=== PATIENT | male | born 1960 | race Caucasian/White ===

== ENCOUNTER → 2020-05-27 | Day surgery (SDC) | payer OTHER ==
[2020-05-21 10:13] LABS: Urine Bacteria FEW /hpf (None Seen); Urine Blood Negative /uL (Negative); Urine Mucus FEW (None Seen); Urine Specific Gravity 1.025 (1.001-1.035); Urine WBC 1 /hpf (0 - 3)
[2020-05-21 10:28] LABS: Basophils # (auto) 0.1 10 ^3/uL (0-0.2); Basophils % (auto) 1.3 % (0.0-2.0); Eosinophils # (auto) 0.2 10 ^3/uL (0-0.8); Eosinophils % (auto) 3.4 % (0.0-7.0); Hematocrit 39.5 % (41.0-53.0); Hemoglobin 13.4 g/dL (13.5-17.5); Lymphocytes # (auto) 1.8 10 ^3/uL (0.4-5.4); Lymphocytes % (auto) 27.1 % (10.0-50.0); Mean Corpuscular Hemoglobin 32.8 pg (28.0-32.0); Mean Corpuscular Hgb Conc. 33.9 g/dL (32.0-36.0); Mean Corpuscular Volume 96.7 fL (80.0-100.0); Monocytes # (auto) 0.6 10 ^3/uL (0-1.3); Monocytes % (auto) 8.8 % (0.0-12.0); Neutrophils # (auto) 3.9 10 ^3/uL (1.6-8.6); Neutrophils % (auto) 59.4 % (37.0-80.0); Platelet Count (auto) 317 10^3/uL (140-450); Red Blood Cells 4.08 10^6/uL (4.5-5.90); Red Cell Distribution Width 12.2 % (11.8-14.3); White Blood Cell 6.5 10^3/uL (4.4-10.8)
[2020-05-21 10:50] LABS: Potassium 4.2 mmol/L (3.5-5.1)
[2020-05-21 10:58] LABS: Albumin 3.9 g/dL (3.4-5.0); BUN/Creatinine Ratio 15.9; Bilirubin, Total 0.5 mg/dL (0.2-1.0); Calcium 8.8 mg/dL (8.5-10.1); Total Protein 6.8 g/dL (6.4-8.2)
[2020-05-21 11:01] LABS: INR 0.97 (0.9-1.15); Partial Thromboplastin Time 27.3 sec (23.0-31.2)
[~2020-05-27] VITALS: Ht 177.8 cm; Wt 83.9 kg
[~2020-05-27] MED LIST: BUPIVACAINE W/ EPINEPH 0.25% INJ 50ML MDV ONE; GABA100C PO; HYDR-4833 PO; HYDROmorphone HCL 2 MG/ML VL IV PRN; KETAMINE HCL 10 ML ONE; LEVO137T3 PO; LIDOCAINE W/ EPINEPHRINE 2% INJ 20ML VIAL ONE; LOVA40TA72 PO; MELO1TAB56 PO; MIDAZOLAM HCL 1MG/1ML-2 ML VIAL ONE; MORPHINE SULF(PF) 0.5MG/ML 10ML VIAL ONE; MORPHINE SULFATE 4 MG/ML SYR/VIAL IV PRN; OMEP20TA PO; ONDANSETRON HCL 4 MG/2 ML VIAL IV PRN; ONDANSETRON HCL 4 MG/2 ML VIAL ONE; PROPOFOL 10 MG/ML 20 ML IV ONE; SERT-377 PO; SODIUM CHLORIDE LOCK 10 ML ONE; fentaNYL CITRATE 100 MCG/2 ML VL ONE
[2020-05-27 10:28] VITALS: BP 140/75
== END | disposition home or self-care (01) ==
LOC: SUR 07:15
PROVIDERS: ATTEND Anesthesiology Pain Medicine
DX: M48.062 Spinal stenosis, lumbar region with neurogenic claudication (principal); F32.9 Major depressive disorder, single episode, unspecified; G62.9 Polyneuropathy, unspecified; Z88.8 Allergy status to other drugs, medicaments and biological substances; Z79.82 Long term (current) use of aspirin; Z79.899 Other long term (current) drug therapy; Z98.890 Other specified postprocedural states; Z20.828 Contact with and (suspected) exposure to other viral communicable diseases
CPT/HCPCS: 22869; 22870; 36415; 72100; 80053; 81001; 85025; 85610; 85730; 87086; C1821; J2250; J2270; J2405; J2704; J3010; J7030; U0003; 76000

== ENCOUNTER → 2020-12-30 | Outpatient (CLI) | payer OTHER ==
[~2020-12-30] MED LIST changes: -BUPIVACAINE W/ EPINEPH 0.25% INJ 50ML MDV ONE; -HYDROmorphone HCL 2 MG/ML VL IV PRN; -KETAMINE HCL 10 ML ONE; -LIDOCAINE W/ EPINEPHRINE 2% INJ 20ML VIAL ONE; -MIDAZOLAM HCL 1MG/1ML-2 ML VIAL ONE; -MORPHINE SULF(PF) 0.5MG/ML 10ML VIAL ONE; -MORPHINE SULFATE 4 MG/ML SYR/VIAL IV PRN; -ONDANSETRON HCL 4 MG/2 ML VIAL IV PRN; -ONDANSETRON HCL 4 MG/2 ML VIAL ONE; -PROPOFOL 10 MG/ML 20 ML IV ONE; -SODIUM CHLORIDE LOCK 10 ML ONE; -fentaNYL CITRATE 100 MCG/2 ML VL ONE
== END | disposition home or self-care (01) ==
LOC: XYW 10:01
PROVIDERS: ATTEND Internal Medicine Pulmonary Disease
DX: M47.817 Spondylosis without myelopathy or radiculopathy, lumbosacral region (principal); M48.07 Spinal stenosis, lumbosacral region; M25.78 Osteophyte, vertebrae; M47.815 Spondylosis without myelopathy or radiculopathy, thoracolumbar region; M43.8X6 Other specified deforming dorsopathies, lumbar region; M48.56XA Collapsed vertebra, not elsewhere classified, lumbar region, initial encounter for fracture; M96.1 Postlaminectomy syndrome, not elsewhere classified; M51.35 Other intervertebral disc degeneration, thoracolumbar region; M48.05 Spinal stenosis, thoracolumbar region
CPT/HCPCS: 72148

== ENCOUNTER 2021-01-12 15:29 | Emergency (ER) | payer OTHER ==
[~2021-01-12] VITALS: Ht 175.3 cm; Wt 81.6 kg
[2021-01-12] MEDS ORDERED: cloNIDine HCL 0.1 MG TAB PO ONE (16:15)
[2021-01-12 16:27] LABS: Basophils # (auto) 0.1 10 ^3/uL (0-0.2); Basophils % (auto) 0.7 % (0.0-2.0); Eosinophils # (auto) 0.3 10 ^3/uL (0-0.8); Eosinophils % (auto) 2.9 % (0.0-7.0); Hematocrit 38.7 % (41.0-53.0); Hemoglobin 13.4 g/dL (13.5-17.5); Lymphocytes # (auto) 1.4 10 ^3/uL (0.4-5.4); Lymphocytes % (auto) 15.2 % (10.0-50.0); Mean Corpuscular Hemoglobin 32.6 pg (28.0-32.0); Mean Corpuscular Hgb Conc. 34.7 g/dL (32.0-36.0); Mean Corpuscular Volume 94.1 fL (80.0-100.0); Monocytes % (auto) 10.7 % (0.0-12.0); Neutrophils # (auto) 6.3 10 ^3/uL (1.6-8.6); Neutrophils % (auto) 70.5 % (37.0-80.0); Platelet Count (auto) 301 10^3/uL (140-450); Red Blood Cells 4.11 10^6/uL (4.5-5.90); Red Cell Distribution Width 12.8 % (11.8-14.3)
[2021-01-12 16:44] LABS: Albumin 4.1 g/dL (3.4-5.0); Anion Gap 7 (5-15); Blood Urea Nitrogen 14 mg/dL (7-18); Calcium 9.2 mg/dL (8.5-10.1); Carbon Dioxide 24 mmol/L (21-32); Chloride 104 mmol/L (98-107); Glucose 88 mg/dL (74-106); Magnesium 2.6 mg/dL (1.6-2.6); Sodium 135 mmol/L (136-145)
[2021-01-12] MEDS ORDERED: IOHEXOL 350 MG/ML 100ML IJ ONE (16:49)
[2021-01-12 16:51] LABS: Alanine Aminotransferase 28 U/L (16-61); Alkaline Phosphatase 65 U/L (45-117); Aspartate Aminotransferase 21 U/L (15-37); BUN/Creatinine Ratio 23.3; Bilirubin, Total 0.3 mg/dL (0.2-1.0); GFR African American 176 mL/min; GFR Non-African American 145 mL/min; INR 0.93 (0.9-1.15); Partial Thromboplastin Time 27.7 sec (23.0-31.2); Total Protein 7.4 g/dL (6.4-8.2)
[2021-01-12 18:57] LABS: Urine WBC None Seen /hpf (0 - 3)
[2021-01-12 19:02] LABS: Urine Bacteria NONE SEEN /hpf (None Seen); Urine Blood Negative /uL (Negative); Urine Specific Gravity 1.016 (1.001-1.035)
[2021-01-12 19:23] VITALS: BP 124/64
== END 2021-01-12 19:52 | disposition home or self-care (01) ==
LOC: ER 15:29
DX: R10.9 Unspecified abdominal pain (principal); Z79.899 Other long term (current) drug therapy; Z88.8 Allergy status to other drugs, medicaments and biological substances; Z20.822 Contact with and (suspected) exposure to COVID-19
CPT/HCPCS: 36415; 71260; 74177; 76775; 80053; 81001; 83605; 83735; 83880; 84443; 84484; 85025; 85379; 85610; 85730; 87426; 93005; 99285; Q9967

== ENCOUNTER → 2021-01-19 | Outpatient (CLI) | payer OTHER ==
[2021-01-19 10:58] LABS: Urine Bacteria NONE SEEN /hpf (None Seen); Urine Blood Negative /uL (Negative); Urine Hyaline Cast FEW /lpf (0 - 2); Urine Specific Gravity 1.015 (1.001-1.035); Urine WBC <1 /hpf (0 - 3)
[2021-01-19 11:36] LABS: Cholesterol 178 mg/dL (< 200); HDL Cholesterol 61 mg/dL (40-59); LDL Cholesterol 106 mg/dL (< 100); Lactate Dehydrogenase 158 U/L (87-241); Triglycerides 84 mg/dL (< 150)
[2021-01-19 11:37] LABS: Prostate Specific Antigen 1.02 ng/mL (0.0-4.0)
== END | disposition home or self-care (01) ==
LOC: LAB 10:25
PROVIDERS: ATTEND Internal Medicine
DX: N40.0 Benign prostatic hyperplasia without lower urinary tract symptoms (principal); E78.5 Hyperlipidemia, unspecified; D64.9 Anemia, unspecified
CPT/HCPCS: 36415; 80061; 81001; 82607; 83540; 83615; 84153

== ENCOUNTER 2022-02-17 14:08 | Day surgery (SDC) | payer OTHER ==
[2022-02-15 11:26] LABS: Basophils # (auto) 0.2 10 ^3/uL (0-0.2); Basophils % (auto) 2.9 % (0.0-2.0); Eosinophils # (auto) 0.2 10 ^3/uL (0-0.8); Eosinophils % (auto) 2.5 % (0.0-7.0); Hemoglobin 13.2 g/dL (13.5-17.5); Lymphocytes # (auto) 1.4 10 ^3/uL (0.4-5.4); Lymphocytes % (auto) 19.8 % (10.0-50.0); Mean Corpuscular Hemoglobin 32.4 pg (28.0-32.0); Mean Corpuscular Hgb Conc. 34.7 g/dL (32.0-36.0); Mean Corpuscular Volume 93.4 fL (80.0-100.0); Monocytes # (auto) 0.8 10 ^3/uL (0-1.3); Monocytes % (auto) 11.4 % (0.0-12.0); Neutrophils # (auto) 4.6 10 ^3/uL (1.6-8.6); Neutrophils % (auto) 63.4 % (37.0-80.0); Red Blood Cells 4.07 10^6/uL (4.5-5.90); Red Cell Distribution Width 12.6 % (11.8-14.3); White Blood Cell 7.2 10^3/uL (4.4-10.8)
[2022-02-15 11:42] LABS: INR 0.98 (0.9-1.15)
[2022-02-15 11:55] LABS: Potassium 4.7 mmol/L (3.5-5.1)
[2022-02-15 12:00] LABS: BUN/Creatinine Ratio 17.2; Calcium 9.3 mg/dL (8.5-10.1)
[2022-02-15 12:02] LABS: Bilirubin, Total 0.5 mg/dL (0.2-1.0); Total Protein 7.4 g/dL (6.4-8.2)
[~2022-02-17] VITALS: Ht 170.2 cm; Wt 77.1 kg
[~2022-02-17 14:08] MED LIST changes: +ASCO500T11 PO; +ASPI1TAB20 PO; +B CO PO; +CALC667C5 PO; +COEN100C37 PO; +FERR-7 PO; -GABA100C PO; +GABA300C11 PO; +MULT-733 OR; +OMEGCAP2 OR; +VITA-55 PO
[2022-02-17] MEDS ORDERED: diphenhdrAMINE HCL 50 MG/1 ML VL ONE (14:50)
[2022-02-17] MEDS: MIDAZOLAM HCL 5 MG/ML-1ML VIAL ONE ×2 (15:24→15:29)
[2022-02-17] MEDS: fentaNYL CITRATE 100 MCG/2 ML VL ONE ×2 (15:24→15:29)
[2022-02-17 16:15] VITALS: BP 131/77
== END 2022-02-17 16:15 | disposition home or self-care (01) ==
LOC: GI 14:08
PROVIDERS: ATTEND Internal Medicine Gastroenterology
DX: K62.5 Hemorrhage of anus and rectum (principal); K64.0 First degree hemorrhoids; K63.89 Other specified diseases of intestine; F41.9 Anxiety disorder, unspecified; F32.A Depression, unspecified; Z80.0 Family history of malignant neoplasm of digestive organs; Z98.890 Other specified postprocedural states; Z79.899 Other long term (current) drug therapy; Z88.5 Allergy status to narcotic agent; Z91.014 Allergy to mammalian meats; Z20.822 Contact with and (suspected) exposure to COVID-19
CPT/HCPCS: 36415; 45378; 80053; 85025; 85610; 85730; J1200; J2250; J3010; J7030; U0003; 99152

== ENCOUNTER → 2022-04-27 | Outpatient (CLI) | payer OTHER ==
[2022-04-27 10:09] LABS: Basophils # (auto) 0.1 10 ^3/uL (0-0.2); Basophils % (auto) 0.9 % (0.0-2.0); Eosinophils # (auto) 0.2 10 ^3/uL (0-0.8); Eosinophils % (auto) 3.2 % (0.0-7.0); Hematocrit 39.6 % (41.0-53.0); Hemoglobin 13.1 g/dL (13.5-17.5); Lymphocytes # (auto) 1.9 10 ^3/uL (0.4-5.4); Lymphocytes % (auto) 25.6 % (10.0-50.0); Mean Corpuscular Hemoglobin 31.1 pg (28.0-32.0); Mean Corpuscular Hgb Conc. 33.1 g/dL (32.0-36.0); Mean Corpuscular Volume 93.9 fL (80.0-100.0); Monocytes # (auto) 0.5 10 ^3/uL (0-1.3); Monocytes % (auto) 7.4 % (0.0-12.0); Neutrophils # (auto) 4.6 10 ^3/uL (1.6-8.6); Neutrophils % (auto) 62.9 % (37.0-80.0); Red Blood Cells 4.22 10^6/uL (4.5-5.90); Red Cell Distribution Width 13.6 % (11.8-14.3); White Blood Cell 7.4 10^3/uL (4.4-10.8)
[2022-04-27 10:17] LABS: Urine Bacteria NONE SEEN /hpf (None Seen); Urine Blood Negative /uL (Negative); Urine Specific Gravity 1.016 (1.001-1.035); Urine WBC 1 /hpf (0 - 3)
[2022-04-27 10:24] LABS: INR 0.95 (0.9-1.15)
[2022-04-27 10:36] LABS: Albumin 3.9 g/dL (3.4-5.0); Calcium 9.1 mg/dL (8.5-10.1); Potassium 4.7 mmol/L (3.5-5.1)
[2022-04-27 10:42] LABS: BUN/Creatinine Ratio 26.5; Bilirubin, Total 0.4 mg/dL (0.2-1.0); Total Protein 6.9 g/dL (6.4-8.2)
== END | disposition home or self-care (01) ==
LOC: LAB 09:53
PROVIDERS: ATTEND Internal Medicine
DX: E03.9 Hypothyroidism, unspecified (principal); D84.9 Immunodeficiency, unspecified; F32.9 Major depressive disorder, single episode, unspecified
CPT/HCPCS: 36415; 80053; 80061; 81001; 84439; 84443; 85025; 85610; 85652; 86735; 86787

== ENCOUNTER → 2022-06-16 | Outpatient (CLI) | payer OTHER | END | disposition home or self-care (01) | LOC: XY 09:17 | PROVIDERS: ATTEND Internal Medicine | DX: Z95.828 Presence of other vascular implants and grafts (principal) | CPT/HCPCS: 93925 ==

== ENCOUNTER 2022-07-27 08:11 | Emergency (ER) | payer OTHER ==
[~2022-07-27] VITALS: Ht 170.2 cm; Wt 77.0 kg
[2022-07-27] MEDS ORDERED: HYDROcodone-ACET 5/325MG TAB PO ONE (09:15)
[2022-07-27] MEDS ORDERED: CEPH-510 PO (09:25)
[2022-07-27 09:27] VITALS: BP 142/76
== END 2022-07-27 09:36 | disposition home or self-care (01) ==
LOC: ER 08:11
DX: S82.002A Unspecified fracture of left patella, initial encounter for closed fracture (principal); S50.311A Abrasion of right elbow, initial encounter; S00.81XA Abrasion of other part of head, initial encounter; I10 Essential (primary) hypertension; E03.9 Hypothyroidism, unspecified; G89.29 Other chronic pain; M54.50 Low back pain, unspecified; Z79.82 Long term (current) use of aspirin; Z79.899 Other long term (current) drug therapy; Z88.8 Allergy status to other drugs, medicaments and biological substances; W01.0XXA Fall on same level from slipping, tripping and stumbling without subsequent striking against object, initial encounter; Y93.89 Activity, other specified; Y92.89 Other specified places as the place of occurrence of the external cause; Y99.8 Other external cause status
CPT/HCPCS: 29505; 73562

== ENCOUNTER → 2022-07-28 | Outpatient (CLI) | payer OTHER ==
[~2022-07-28] MED LIST changes: +CEPH-510 PO; +HYDR1TAB97 PO
== END | disposition home or self-care (01) ==
LOC: LAB 12:37
PROVIDERS: ATTEND Family Medicine
DX: L82.1 Other seborrheic keratosis (principal)
CPT/HCPCS: 88302

== ENCOUNTER 2022-08-15 06:09 | Day surgery (SDC) | payer OTHER ==
[2022-08-11 14:23] LABS: Basophils # (auto) 0.1 10 ^3/uL (0-0.2); Basophils % (auto) 1.3 % (0.0-2.0); Eosinophils # (auto) 0.3 10 ^3/uL (0-0.8); Eosinophils % (auto) 3.2 % (0.0-7.0); Hematocrit 38.2 % (41.0-53.0); Lymphocytes # (auto) 1.8 10 ^3/uL (0.4-5.4); Lymphocytes % (auto) 21.6 % (10.0-50.0); Mean Corpuscular Volume 94.2 fL (80.0-100.0); Monocytes # (auto) 0.7 10 ^3/uL (0-1.3); Monocytes % (auto) 8.2 % (0.0-12.0); Neutrophils # (auto) 5.4 10 ^3/uL (1.6-8.6); Neutrophils % (auto) 65.7 % (37.0-80.0); Nucleated Red Blood Cells % 0.2 %; Red Blood Cells 4.06 10^6/uL (4.5-5.90); Red Cell Distribution Width 13.2 % (11.8-14.3); White Blood Cell 8.2 10^3/uL (4.4-10.8)
[2022-08-11 14:44] LABS: Albumin 4.3 g/dL (3.4-5.0); Calcium 9.2 mg/dL (8.5-10.1); Potassium 4.6 mmol/L (3.5-5.1)
[2022-08-11 14:46] LABS: Bilirubin, Total 0.4 mg/dL (0.2-1.0); Total Protein 7.6 g/dL (6.4-8.2)
[2022-08-11 15:00] LABS: INR 0.97 (0.9-1.15); Partial Thromboplastin Time 28.9 sec (24.6-33.4)
[~2022-08-15] VITALS: Ht 170.2 cm; Wt 79.4 kg
[~2022-08-15 06:09] MED LIST changes: -CEPH-510 PO; -HYDR1TAB97 PO
[2022-08-15] MEDS ORDERED: ceFAZolin 1GM/50ML 100 ML IV ONE (06:38)
[2022-08-15] MEDS ORDERED: VANCOMYCIN HCL 1000 MG VL ONE (06:46)
[2022-08-15] MEDS ORDERED: ROCURONIUM 10MG/ML 10ML VIAL IV ONE (06:55)
[2022-08-15] MEDS ORDERED: SUCCINYLCHOLINE CHLORIDE 20 MG/ML 10ML VIAL IV ONE (06:55)
[2022-08-15] MEDS ORDERED: fentaNYL CITRATE 100 MCG/2 ML VL ONE (06:58)
[2022-08-15] MEDS ORDERED: HYDROmorphone HCL 2 MG/ML VL/or syr ONE (06:58)
[2022-08-15] MEDS ORDERED: MIDAZOLAM HCL 2MG/2ML 2ml VIAL (1mg/ml) ONE (06:58)
[2022-08-15] MEDS ORDERED: NEOSTIGMINE 1 MG/ML INJ (10mg/10ML VIAL) ONE (06:59)
[2022-08-15] MEDS ORDERED: SODIUM CHLORIDE LOCK 10 ML ONE (06:59)
[2022-08-15] MEDS ORDERED: PROPOFOL 10 MG/ML 20 ML IV ONE (06:59)
[2022-08-15] MEDS ORDERED: ONDANSETRON HCL 4 MG/2 ML VIAL ONE (06:59)
[2022-08-15] MEDS ORDERED: GLYCOPYRROLATE 0.2 MG/ML 1ML VIAL ONE (06:59)
[2022-08-15] MEDS ORDERED: DexAMETHasone SOD PHOS 10MG/1ML VIAL INJ ONE (06:59)
[2022-08-15] MEDS ORDERED: BUPIVACAINE 0.5% P/F INJ 10 ML VIAL ONE (07:12)
[2022-08-15] MEDS ORDERED: MORPHINE SULFATE 4 MG/ML SYR/VIAL IV PRN (08:00)
[2022-08-15] MEDS ORDERED: HYDROmorphone HCL 2 MG/ML VL/or syr IV PRN ×2 (08:00)
[2022-08-15] MEDS ORDERED: KETOROLAC TROMETH 30 MG/ML 1ML VIAL IV ONE (08:00)
[2022-08-15] MEDS ORDERED: METOCLOPRAMIDE HCL 5MG/ml INJ 2ml VIAL IV PRN (08:00)
[2022-08-15] MEDS ORDERED: HYDR1TAB97 PO (09:31)
[2022-08-15 10:00] VITALS: BP 147/77
== END 2022-08-15 10:15 | disposition home or self-care (01) ==
LOC: SUR 06:09
PROVIDERS: ATTEND Orthopaedic Surgery Sports Medicine
DX: S82.032A Displaced transverse fracture of left patella, initial encounter for closed fracture (principal); E03.9 Hypothyroidism, unspecified; Z79.890 Hormone replacement therapy; X58.XXXA Exposure to other specified factors, initial encounter; Y93.89 Activity, other specified; Y92.89 Other specified places as the place of occurrence of the external cause; Y99.8 Other external cause status; Z20.822 Contact with and (suspected) exposure to COVID-19
CPT/HCPCS: 27524; 36415; 73562; 76000; 80053; 85025; 85610; 85730; C1713; C1769; J0330; J0690; J1100; J1170; J2250; J2405; J2704; J3010; J3370; J3490; U0003

== ENCOUNTER → 2022-09-29 | Outpatient (CLI) | payer OTHER ==
[~2022-09-29] MED LIST changes: +HYDR1TAB97 PO
[2022-09-29 10:58] LABS: Urine WBC None Seen /hpf (0 - 3)
[2022-09-29 11:04] LABS: Basophils # (auto) 0.1 10 ^3/uL (0-0.2); Basophils % (auto) 1.2 % (0.0-2.0); Eosinophils # (auto) 0.2 10 ^3/uL (0-0.8); Eosinophils % (auto) 3.5 % (0.0-7.0); Hematocrit 38.7 % (41.0-53.0); Hemoglobin 13.3 g/dL (13.5-17.5); Lymphocytes # (auto) 1.8 10 ^3/uL (0.4-5.4); Lymphocytes % (auto) 27.2 % (10.0-50.0); Mean Corpuscular Hemoglobin 32.4 pg (28.0-32.0); Mean Corpuscular Hgb Conc. 34.4 g/dL (32.0-36.0); Monocytes # (auto) 0.5 10 ^3/uL (0-1.3); Monocytes % (auto) 6.8 % (0.0-12.0); Neutrophils # (auto) 4.1 10 ^3/uL (1.6-8.6); Neutrophils % (auto) 61.3 % (37.0-80.0); Nucleated Red Blood Cells % 0.1 %; Red Blood Cells 4.12 10^6/uL (4.5-5.90); Red Cell Distribution Width 12.9 % (11.8-14.3); White Blood Cell 6.6 10^3/uL (4.4-10.8)
[2022-09-29 11:05] LABS: Urine Bacteria FEW /hpf (None Seen); Urine Blood Negative /uL (Negative); Urine Specific Gravity 1.007 (1.001-1.035)
[2022-09-29 11:18] LABS: INR 0.93 (0.9-1.15)
[2022-09-29 11:40] LABS: Calcium 9.1 mg/dL (8.5-10.1); Potassium 4.7 mmol/L (3.5-5.1)
[2022-09-29 11:41] LABS: % Iron Saturation 20.8 % (20-55)
[2022-09-29 11:46] LABS: Albumin 4.3 g/dL (3.4-5.0); BUN/Creatinine Ratio 27.4; Bilirubin, Total 0.3 mg/dL (0.2-1.0); Total Protein 7.1 g/dL (6.4-8.2)
[2022-09-29 11:48] LABS: Free T4 (Free Thyroxine) 1.62 ng/dL (0.89-1.76); Prostate Specific Antigen 1.11 ng/mL (0.0-4.0)
[2022-09-29 11:57] LABS: Thyroid Stimulating Hormone 0.09 uIU/mL (0.358-3.74)
== END | disposition home or self-care (01) ==
LOC: LAB 10:47
PROVIDERS: ATTEND Internal Medicine
DX: E03.9 Hypothyroidism, unspecified (principal); D64.9 Anemia, unspecified
CPT/HCPCS: 36415; 80053; 81001; 82607; 83540; 83550; 83615; 84153; 84439; 84443; 85025; 85610

== ENCOUNTER → 2022-10-30 | Outpatient (CLI) | payer OTHER | END | disposition home or self-care (01) | LOC: LAB 13:46 | PROVIDERS: ATTEND Family Medicine | DX: L57.8 Other skin changes due to chronic exposure to nonionizing radiation (principal) | CPT/HCPCS: 88302 ==

== ENCOUNTER → 2023-07-12 | Outpatient (CLI) | payer OTHER ==
[~2023-07-12] MED LIST changes: +GABA-1254 PO; -GABA300C11 PO; +MELO-335 PO; -MELO1TAB56 PO
[2023-07-12 13:44] LABS: Basophils # (auto) 0.1 10 ^3/uL (0-0.2); Basophils % (auto) 0.9 % (0.0-2.0); Eosinophils # (auto) 0.3 10 ^3/uL (0-0.8); Eosinophils % (auto) 2.9 % (0.0-7.0); Hematocrit 37.4 % (41.0-53.0); Lymphocytes # (auto) 2.5 10 ^3/uL (0.4-5.4); Lymphocytes % (auto) 28.1 % (10.0-50.0); Mean Corpuscular Hemoglobin 32.9 pg (28.0-32.0); Mean Corpuscular Hgb Conc. 34.6 g/dL (32.0-36.0); Monocytes # (auto) 0.7 10 ^3/uL (0-1.3); Monocytes % (auto) 7.7 % (0.0-12.0); Neutrophils # (auto) 5.3 10 ^3/uL (1.6-8.6); Neutrophils % (auto) 60.4 % (37.0-80.0); Red Blood Cells 3.94 10^6/uL (4.5-5.90); Red Cell Distribution Width 12.4 % (11.8-14.3); White Blood Cell 8.7 10^3/uL (4.4-10.8)
[2023-07-12 14:10] LABS: % Iron Saturation 37.2 % (20-55)
[2023-07-12 14:11] LABS: Alanine Aminotransferase 19 U/L (7-40); Albumin 4.6 g/dL (3.2-4.8); Alkaline Phosphatase 62 U/L (46-116); Anion Gap 4 (5-15); Aspartate Aminotransferase 13 U/L (13-40); BUN/Creatinine Ratio 17.4 (10.0-20.0); Bilirubin, Total 0.4 mg/dL (0.2-1.0); Blood Urea Nitrogen 12 mg/dL (9-23); Calcium 9.5 mg/dL (8.5-10.1); Carbon Dioxide 30 mmol/L (20-30); Chloride 100 mmol/L (98-107); Glucose 124 mg/dL (74-106); Potassium 4.4 mmol/L (3.5-5.1); Sodium 134 mmol/L (136-145)
== END | disposition home or self-care (01) ==
LOC: LAB 13:23
PROVIDERS: ATTEND Internal Medicine
DX: D64.9 Anemia, unspecified (principal)
CPT/HCPCS: 36415; 80053; 83540; 83550; 85025

== ENCOUNTER 2023-08-24 16:05 | Emergency (ER) | payer OTHER ==
[~2023-08-24] VITALS: Ht 170.2 cm; Wt 77.3 kg
[2023-08-24] MEDS ORDERED: HYDROmorphone HCL 2 MG/ML VL/or syr IM ONE (17:30)
[2023-08-24 20:30] VITALS: BP 116/63; PULSE 69; RESP 16; TEMP 97.9; O2SAT 99
== END 2023-08-24 20:31 | disposition home or self-care (01) ==
LOC: ER 16:05
DX: S72.114A Nondisplaced fracture of greater trochanter of right femur, initial encounter for closed fracture (principal); I10 Essential (primary) hypertension; Z79.899 Other long term (current) drug therapy; Z88.6 Allergy status to analgesic agent; Z88.8 Allergy status to other drugs, medicaments and biological substances; W01.0XXA Fall on same level from slipping, tripping and stumbling without subsequent striking against object, initial encounter; Y93.89 Activity, other specified; Y92.89 Other specified places as the place of occurrence of the external cause; Y99.8 Other external cause status
CPT/HCPCS: 73502; 96372; 99283; J1170

== ENCOUNTER → 2023-12-21 | Outpatient (CLI) | payer OTHER ==
[2023-12-21 12:44] LABS: Basophils # (auto) 0.1 10 ^3/uL (0-0.2); Basophils % (auto) 1.3 % (0.0-2.0); Eosinophils # (auto) 0.3 10 ^3/uL (0-0.8); Eosinophils % (auto) 3.9 % (0.0-7.0); Hematocrit 36.3 % (41.0-53.0); Hemoglobin 12.1 g/dL (13.5-17.5); Lymphocytes # (auto) 2.6 10 ^3/uL (0.4-5.4); Lymphocytes % (auto) 31.3 % (10.0-50.0); Mean Corpuscular Hgb Conc. 33.4 g/dL (32.0-36.0); Mean Corpuscular Volume 95.8 fL (80.0-100.0); Monocytes # (auto) 0.6 10 ^3/uL (0-1.3); Monocytes % (auto) 7.5 % (0.0-12.0); Neutrophils # (auto) 4.7 10 ^3/uL (1.6-8.6); Red Blood Cells 3.79 10^6/uL (4.5-5.90); Red Cell Distribution Width 12.9 % (11.8-14.3); White Blood Cell 8.3 10^3/uL (4.4-10.8)
[2023-12-21 13:19] LABS: Albumin 4.6 g/dL (3.2-4.8); Alkaline Phosphatase 52 U/L (46-116); Anion Gap 4 (5-15); Aspartate Aminotransferase 20 U/L (13-40); BUN/Creatinine Ratio 17.6 (10.0-20.0); Blood Urea Nitrogen 13 mg/dL (9-23); Calcium 9.3 mg/dL (8.5-10.1); Carbon Dioxide 29 mmol/L (20-30); Chloride 102 mmol/L (98-107); Glucose 91 mg/dL (74-106); Potassium 4.1 mmol/L (3.5-5.1); Sodium 135 mmol/L (136-145)
[2023-12-21 13:20] LABS: Bilirubin, Total 0.4 mg/dL (0.2-1.0); Total Protein 6.9 g/dL (5.7-8.2)
[2023-12-21 13:23] LABS: Prostate Specific Antigen 0.95 ng/mL (0.0-4.0)
[2023-12-21 13:25] LABS: Alanine Aminotransferase < 9 U/L (7-40)
== END | disposition home or self-care (01) ==
LOC: LAB 12:26
PROVIDERS: ATTEND Internal Medicine
DX: D64.9 Anemia, unspecified (principal); E03.9 Hypothyroidism, unspecified
CPT/HCPCS: 36415; 80053; 82607; 83540; 83550; 83615; 84153; 85025

== ENCOUNTER → 2024-05-07 | Outpatient (CLI) | payer OTHER ==
[~2024-05-07] VITALS: Ht 170.2 cm; Wt 77.1 kg
[~2024-05-07] MED LIST changes: -MELO-335 PO; +MELO15TA29 PO
[2024-05-07] MEDS: ADENOSINE 65 MG in GIVE UN-DILUTED 0 ML IV ONE (11:29)
== END | disposition home or self-care (01) ==
LOC: XYW 09:21
PROVIDERS: ATTEND Student in an Organized Health Care Education/Training Program
DX: Z01.810 Encounter for preprocedural cardiovascular examination (principal); I99.8 Other disorder of circulatory system; I10 Essential (primary) hypertension; E78.5 Hyperlipidemia, unspecified; J44.9 Chronic obstructive pulmonary disease, unspecified; Z88.8 Allergy status to other drugs, medicaments and biological substances
CPT/HCPCS: 78452; 93017; A9500; J0153

== ENCOUNTER 2024-07-01 07:07 | Day surgery (SDC) | payer OTHER ==
[2024-06-27 14:50] LABS: Basophils # (auto) 0.1 10 ^3/uL (0-0.2); Eosinophils # (auto) 0.2 10 ^3/uL (0-0.8); Eosinophils % (auto) 2.5 % (0.0-7.0); Hematocrit 36.1 % (41.0-53.0); Hemoglobin 12.6 g/dL (13.5-17.5); Lymphocytes # (auto) 2.4 10 ^3/uL (0.4-5.4); Lymphocytes % (auto) 31.1 % (10.0-50.0); Mean Corpuscular Hemoglobin 33.7 pg (28.0-32.0); Mean Corpuscular Hgb Conc. 34.9 g/dL (32.0-36.0); Mean Corpuscular Volume 96.4 fL (80.0-100.0); Monocytes # (auto) 0.8 10 ^3/uL (0-1.3); Monocytes % (auto) 10.6 % (0.0-12.0); Neutrophils # (auto) 4.2 10 ^3/uL (1.6-8.6); Neutrophils % (auto) 54.8 % (37.0-80.0); Platelet Count (auto) 327 10^3/uL (140-450); Red Blood Cells 3.74 10^6/uL (4.5-5.90); Red Cell Distribution Width 12.8 % (11.8-14.3); White Blood Cell 7.6 10^3/uL (4.4-10.8)
[2024-06-27 15:03] LABS: INR 0.99 (0.9-1.15); Partial Thromboplastin Time 27.3 SEC (24.5-34.5); Prothrombin Time 10.5 sec (9.3-11.8)
[2024-06-27 15:19] LABS: Alanine Aminotransferase 16 U/L (7-40); Alkaline Phosphatase 49 U/L (46-116); Anion Gap 4 (5-15); BUN/Creatinine Ratio 16.7 (10.0-20.0); Blood Urea Nitrogen 12 mg/dL (9-23); Carbon Dioxide 29 mmol/L (20-31); Chloride 102 mmol/L (98-107); Glucose 101 mg/dL (74-106); Potassium 4.9 mmol/L (3.5-5.1); Sodium 135 mmol/L (136-145)
[2024-06-27 15:20] LABS: Albumin 4.6 g/dL (3.2-4.8); Aspartate Aminotransferase 15 U/L (13-40); Bilirubin, Total 0.3 mg/dL (0.2-1.0); Total Protein 6.7 g/dL (5.7-8.2)
[2024-07-01] VITALS (7 sets, daily range): BP systolic 103–120; BP diastolic 57–73; PULSE 51–57; RESP 9–16; TEMP 97.1; O2SAT 92–96
[~2024-07-01] VITALS: Ht 170.2 cm; Wt 77.6 kg
[~2024-07-01 07:07] MED LIST changes: +ALBU108A5 IN; -FERR-7 PO; +GABA-1250 PO; -GABA-1254 PO; +HYDR-4798 PO; -HYDR-4833 PO; -HYDR1TAB97 PO; +LEVO112T4 PO; -LEVO137T3 PO; -MELO15TA29 PO; +MORP1TAB12 PO; -OMEGCAP2 OR; +OMEP1CAP70 PO; -OMEP20TA PO; -SERT-377 PO; +SERT100T PO
[2024-07-01] MEDS ORDERED: IODIXANOL 320MG/ML 100ML BTL IV ONE (07:36)
[2024-07-01] MEDS ORDERED: HEPARIN SODIUM (PORCINE) 5000 UNITS/ML 1ML VIAL ONE (08:41)
[2024-07-01] MEDS ORDERED: ANGIOMAX 250 MG VIAL IV ONE (08:41)
[2024-07-01] MEDS ORDERED: VERAPAMIL 2.5MG/ML INJ 2ML VIAL IV ONE (08:41)
[2024-07-01] MEDS ORDERED: MIDAZOLAM HCL 2MG/2ML 2ml VIAL (1mg/ml) ONE (08:42)
[2024-07-01] MEDS ORDERED: fentaNYL CITRATE 100 MCG/2 ML VL ONE (08:42)
[2024-07-01] MEDS ORDERED: SODIUM CHL 0.9% 0 ML ONE (08:43)
[2024-07-01] MEDS ORDERED: LIDOCAINE 2%HCL (LOCAL ANESTH.) INJ 20ML MDV ONE (08:43)
== END 2024-07-01 11:56 | disposition home or self-care (01) ==
LOC: CATH 07:07
PROVIDERS: ATTEND Student in an Organized Health Care Education/Training Program
DX: R94.39 Abnormal result of other cardiovascular function study (principal); I25.10 Atherosclerotic heart disease of native coronary artery without angina pectoris; I99.8 Other disorder of circulatory system; I10 Essential (primary) hypertension; E78.5 Hyperlipidemia, unspecified; F41.9 Anxiety disorder, unspecified; F32.A Depression, unspecified; Z79.82 Long term (current) use of aspirin; Z88.8 Allergy status to other drugs, medicaments and biological substances; Z79.899 Other long term (current) drug therapy
CPT/HCPCS: 36415; 75580; 80053; 85025; 85610; 85730; 93458; C1887; C1894; J1644; J2250; J3010; J7030; Q9967; 99152

== ENCOUNTER 2024-08-12 08:54 | Inpatient (IN) | payer OTHER ==
[2024-08-04 15:19] LABS: Basophils # (auto) 0.1 10 ^3/uL (0-0.2); Eosinophils # (auto) 0.5 10 ^3/uL (0-0.8); Eosinophils % (auto) 5.7 % (0.0-7.0); Hematocrit 36.6 % (41.0-53.0); Hemoglobin 12.7 g/dL (13.5-17.5); Lymphocytes # (auto) 2.3 10 ^3/uL (0.4-5.4); Lymphocytes % (auto) 26.4 % (10.0-50.0); Mean Corpuscular Hemoglobin 33.9 pg (28.0-32.0); Mean Corpuscular Hgb Conc. 34.8 g/dL (32.0-36.0); Mean Corpuscular Volume 97.5 fL (80.0-100.0); Monocytes # (auto) 0.9 10 ^3/uL (0-1.3); Monocytes % (auto) 10.2 % (0.0-12.0); Neutrophils # (auto) 4.9 10 ^3/uL (1.6-8.6); Neutrophils % (auto) 56.7 % (37.0-80.0); Platelet Count (auto) 290 10^3/uL (140-450); Red Blood Cells 3.76 10^6/uL (4.5-5.90); Red Cell Distribution Width 12.6 % (11.8-14.3); White Blood Cell 8.6 10^3/uL (4.4-10.8)
[2024-08-04 15:30] LABS: Urine Bacteria FEW /hpf (None Seen); Urine Blood Negative /uL (Negative); Urine Clarity Clear (Clear); Urine Color Yellow (Yellow); Urine Protein, UAD Negative (Negative); Urine Specific Gravity 1.011 (1.001-1.035); Urine Urobilinogen Normal (Negative); Urine WBC 1 /hpf (0 - 3); Urine pH 6.5 (5.0-9.0)
[2024-08-04 15:39] LABS: INR 0.92 (0.9-1.15); Partial Thromboplastin Time 28.5 SEC (24.5-34.5); Prothrombin Time 9.8 sec (9.3-11.8)
[2024-08-04 16:25] LABS: Alanine Aminotransferase 14 U/L (7-40); Albumin 4.6 g/dL (3.2-4.8); Alkaline Phosphatase 74 U/L (46-116); Anion Gap 3 (5-15); Aspartate Aminotransferase 14 U/L (13-40); BUN/Creatinine Ratio 26.5 (10.0-20.0); Blood Urea Nitrogen 18 mg/dL (9-23); Calcium 9.8 mg/dL (8.7-10.4); Carbon Dioxide 32 mmol/L (20-31); Chloride 101 mmol/L (98-107); Glucose 103 mg/dL (74-106); Potassium 4.4 mmol/L (3.5-5.1); Sodium 136 mmol/L (136-145)
[2024-08-04 16:26] LABS: Bilirubin, Total 0.2 mg/dL (0.2-1.0)
[~2024-08-12] VITALS: Ht 170.2 cm; Wt 79.8 kg
[~2024-08-12 08:54] MED LIST changes: -ALBU108A5 IN
[2024-08-12] MEDS: ceFAZolin 2 GM/D5W100ml 100 ML IV ONE (09:33)
[2024-08-12] MEDS: LIDOCAINE W/ EPINEPHRINE 1% 20ML VIAL ONE (10:52)
[2024-08-12] MEDS: TRANEXAMIC ACID 20 ML ONE (10:52)
[2024-08-12] MEDS: levoFLOXacin 500MG 100 ML IV ONE (10:53)
--- NOTE | 2024-08-12 11:16 | DVHHP2 ---
Admitting Diagnosis: pt. with history of prior lumbar spine surgery being admitted for revision lumbar spine surgery History of Present Illness Home Meds Reported Medications Omeprazole (Omeprazole Dr) 20 Mg Cap, 20 MG PO DAILY for gerd, CAP 06/27/24 Gabapentin (Gabapentin) 300 Mg Cap, 300 MG PO TID for neuropathy, MG 06/27/24 Levothyroxine Sodium (Levothyroxine Sodium) 112 Mcg Tab, 112 MCG PO QAM for low thyroid for 30 Days, MCG 06/27/24 Sertraline Hcl (Zoloft) 100 Mg Tab, 1 TAB PO DAILY for depression, #30 TAB 5 Refills 06/27/24 Lovastatin (Lovastatin) 40 Mg Tab, 1 TAB PO QPM for high cholesterol, #30 TAB 5 Refills 06/27/24 Hydrocodone-Acetaminophen (Hydrocodone Bitartrate/AC 10-325 mg) 1 Tab Tab, 1 TAB PO TID for thru pain, TAB 06/27/24 Morphine Sulfate (Morphine Sulfate Er) 15 Mg Tab, 15 MG PO BID for thru pain, TAB 06/27/24 Ascorbic Acid (VITAMIN C TABLET) 500 Mg Tb, 2 TAB PO DAILY for supplement, #30 TAB 3 Refills 06/27/24 Calcium Acetate (PHOSLO CAPSULE) 667 Mg Cp, 667 MG PO, CAP 02/16/22 Coenzyme Q10 (Ubidecarenone) (CO Q 10) 100 Mg Cap, 100 MG PO DAILY, CAP 02/16/22 Multiple Vitamins W/ Minerals (Centrum Silver) Silver Tab, 1 OR DAILY, TAB 02/16/22 B-Complex W/Biotin & Folic Aci (B-100) 1 Tab Tab, 1 TAB PO DAILY, TAB 02/16/22 Vitamin E (Vitamin E) 400 Unit Cap, 400 UNIT PO DAILY, CAP 02/16/22 Aspirin (Aspir-81) 81 Mg Tab, 81 MG PO DAILY, TAB 02/16/22 Timing/Duration of Back Pain: Getting worse, Changing over time Quality of Back Pain: Aching, Burning, Sharpness Back Pain Location: Lumbar spine Back Pain Radiation: Thigh area Method of Injury/Prior Factors: Other (prior surgery unsuccessful) Associated Symptoms of Back Pa: Tingling in legs, Tingling in feet, Sensory loss, Motor loss Review of Systems Constitutional: No symptom reported Ears, Nose, & Throat: No symptom reported Eyes: No symptom reported Pulmonary/Respiratory: No symptom reported Cardiovascular: No symptom reported Gastrointestinal: No symptom reported Genitourinary: No symptom reported Musculoskeletal: Back pain Skin: No symptom reported Psychiatric: No symptom reported Endocrine: No symptom reported Hemotologic/Lymphatic: No symptom reported H&P Exam Vital Signs Vital Signs Date Time Temp Pulse Resp B/P (MAP) Pulse Ox O2 Delivery O2 Flow Rate FiO2 08/12/24 09:13 98.4 68 18 156/88 (110) 97 98.4 General Appeara: Well developed, Well nourished, Normal Appearance Head Exam: Normal inspection Neck Exam: Normal inspection, Non-tender, Normal alignment Eye Exam: bilateral eye Normal inspection, bilateral eye PERRL, bilateral eye EOMI Ear Exam: bilateral ear Auricle normal, bilateral ear Canal normal, bilateral ear TM normal Nasal Exam: Normal inspection Mouth: Normal Inspection Pulmonary/Respiratory: Normal inspection, Normal breath sounds, Chest non- tender, Lungs clear Cardiovascular/Chest: Normal inspection, Regular rate, Normal Rhythm Abdominal Exam: Normal bowel sounds, Soft, No tenderness, No hepatospenomegaly, No masses Rectal Exam: Deferred Back Exam: Normal inspection, Muscle spasm Pelvic Exam: Not done Male Genital Exam: Not done Shoulder Exam: Normal inspection, Non-tender, Normal ROM Elbow/Forearm Exam: Normal inspection, Non-tender, Normal ROM Wrist Exam: Normal inspection, Non-tender, Normal ROM Hand Exam: Normal inspection, Non-tender, Normal ROM Hip exam: Normal inspection, Non-tender, Normal range of motion Legs: bilateral leg non-tender, bilateral leg normal inspection, bilateral leg normal range of motion, bilateral leg no evidence of injury Knees: bilateral knee non-tender, bilateral knee normal inspection, bilateral knee normal range of motion, bilateral knee no evidence of injury Ankle Exam: bilateral ankle Normal inspection, bilateral ankle Non-tender, bilateral ankle Normal range of motion, bilateral ankle No evidence of injury Foot: bilateral foot non-tender, bilateral foot normal inspection, bilateral foot normal range of motion, bilateral foot no evidence of injury Tendon/ Neuro: Motor deficit, 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: Normal hearing, Normal speech, PERRL Motor/Sensory: Weak motor strength RLE, Weak motor strength LLE Deep Tendon Ref: All intact Neuro/Mental St: Alert, Oriented Appearance: Appropriate appearance, Appropriate insight Eye contact/ Speech: Cooperative, Good eye contact, Normal speech Coordination/Gait: Normal finger->nose, Normal gait, Negative Romberg's sign Skin Exam: Normal inspection, Normal color, Warm/dry Lymphatic: Normal inspection Labs/Xrays Labs Test 08/04/24 15:09 Range/Units White Blood Count 8.6 4.4-10.8 10^3/uL Red Blood Count 3.76 L 4.5-5.90 10^6/uL Hemoglobin 12.7 L 13.5-17.5 g/dL Hematocrit 36.6 L 41.0-53.0 % Mean Corpuscular Volume 97.5 80.0-100.0 fL Mean Corpuscular Hemoglobin 33.9 H 28.0-32.0 pg Mean Corpuscular Hemoglobin Concent 34.8 32.0-36.0 g/dL Red Cell Distribution Width 12.6 11.8-14.3 % Platelet Count 290 140-450 10^3/uL Mean Platelet Volume 6.9 6.9-10.8 fL Neutrophils (%) (Auto) 56.7 37.0-80.0 % Lymphocytes (%) (Auto) 26.4 10.0-50.0 % Monocytes (%) (Auto) 10.2 0.0-12.0 % Eosinophils (%) (Auto) 5.7 0.0-7.0 % Basophils (%) (Auto) 1.0 0.0-2.0 % Neutrophils # (Auto) 4.9 1.6-8.6 10 ^3/uL Lymphocytes # (Auto) 2.3 0.4-5.4 10 ^3/uL Monocytes # (Auto) 0.9 0-1.3 10 ^3/uL Eosinophils # (Auto) 0.5 0-0.8 10 ^3/uL Basophils # (Auto) 0.1 0-0.2 10 ^3/uL Nucleated Red Blood Cells 0.0 % Prothrombin Time 9.8 9.3-11.8 sec Prothrombin Time INR 0.92 0.9-1.15 Activated Partial Thromboplast Time 28.5 24.5-34.5 SEC Urine Color Yellow Yellow Urine Clarity Clear Clear Urine pH 6.5 5.0-9.0 Urine Specific [place] 1.011 1.001-1.035 Urine Protein Negative Negative Urine Ketones Negative Negative Urine Blood Negative Negative /uL Urine Nitrite Negative Negative Urine Bilirubin Negative Negative Urine Urobilinogen Normal Negative mg/dL Urine Leukocyte Esterase Negative Negative /uL Urine RBC <1 0 - 3 /hpf Urine WBC 1 0 - 3 /hpf Urine Squamous Epithelial Cells None seen <5 /hpf Urine Bacteria Few H None Seen /hpf Urine Glucose Normal Normal mg/dL Sodium Level 136 136-145 mmol/L Potassium Level 4.4 3.5-5.1 mmol/L Chloride Level 101 98-107 mmol/L Carbon Dioxide Level 32 H 20-31 mmol/L Anion Gap 3 L 5-15 Blood Urea Nitrogen 18 9-23 mg/dL Creatinine 0.68 L 0.700-1.30 mg/dL Glomerular Filtration Rate Calc 103 >90 mL/min BUN/Creatinine Ratio 26.5 H 10.0-20.0 Serum Glucose 103 74-106 mg/dL Calcium Level 9.8 8.7-10.4 mg/dL Total Bilirubin 0.2 0.2-1.0 mg/dL Aspartate Amino Transferase (AST) 14 13-40 U/L Alanine Aminotransferase (ALT) 14 7-40 U/L Alkaline Phosphatase 74 46-116 U/L Total Protein 7.0 5.7-8.2 g/dL Albumin 4.6 3.2-4.8 g/dL Assessment/Plan Primary Diagnosis post laminectomy syndrome lumbar spine Plan admit for elective lumbar spine surgery Plan discussed with: Patient TORO OCONNOR MD Aug 12, 2024 11:16
[2024-08-12] MEDS ORDERED: MIDAZOLAM HCL 2MG/2ML 2ml VIAL (1mg/ml) ONE (12:43)
[2024-08-12] MEDS ORDERED: fentaNYL CITRATE 100 MCG/2 ML VL ONE ×2 (12:43→15:45)
[2024-08-12] MEDS ORDERED: HYDROmorphone HCL 2 MG/ML VL/or syr ONE ×2 (12:43→16:53)
[2024-08-12] MEDS: LIDOCAINE 1%HCL (LOCAL ANESTH) 10 ML MDV IJ ONE (13:47)
[2024-08-12] MEDS ORDERED: ONDANSETRON HCL 4 MG/2 ML VIAL IV ONE (14:11)
[2024-08-12] MEDS ORDERED: MIDAZOLAM HCL 2MG/2ML 2ml VIAL (1mg/ml) IV PRN (14:15)
[2024-08-12] MEDS ORDERED: MORPHINE SULFATE 4 MG/ML SYR/VIAL IV PRN ×3 (14:15→17:15)
[2024-08-12] MEDS ORDERED: ePHEDrine SULFATE 50 MG/ML AMP IV PRN (14:15)
[2024-08-12] MEDS ORDERED: hydrALAZINE HCL 20 MG/ML VL IV PRN (14:15)
[2024-08-12] MEDS ORDERED: fentaNYL CITRATE 100 MCG/2 ML VL IV PRN ×2 (14:15→17:15)
[2024-08-12] MEDS: ONDANSETRON HCL 4 MG/2 ML VIAL IV ONE (14:15)
[2024-08-12] MEDS ORDERED: PROPOFOL 10 MG/ML 20 ML IV ONE (14:22)
[2024-08-12] MEDS ORDERED: MORPHINE SULFATE INJ 2 MG/ml SYRG IV PRN ×2 (16:45→17:15)
[2024-08-12] MEDS ORDERED: NITROGLYCERIN 0.4 MG SL TAB SL PRN (16:45)
[2024-08-12] MEDS ORDERED: ONDANSETRON HCL 4 MG/2 ML VIAL IV PRN (16:45)
--- NOTE | 2024-08-12 16:53 | DVHOP2 ---
Operative Report - 2 Report Details Date: 08/12/24 Preop Diagnosis: post laminectomy syndromee lumbar spine Postop Diagnosis: same as pre op Surgeon: Kris Arambula MD Tool Hardener: Valarie Green NP Anesthesiologist: stan Anesthesia: General Consent: The patient was informed of the risks and benefits of the procedure. These include but are not limited to complications of anesthesia, postoperative infection, incomplete relief of symptoms, recurrence of symptoms, damage to blood vessels, nerves and tendons, deep venous thrombosis, pulmonary embolism and possible need for repeat surgery in the future. Name of Procedure Performed see procedure note Procedure Details Procedure Details: Pre-op Diagnosis: 1. Post laminectomy syndrome lumbar spine with severe central canal stenosis at the L3/4 level and spondylolisthesis/degenerative scoliosis at the L3/4 level 2. Lumbar spinal stenosis with incapacitating radiculopathy 3. retained hardware lumbar spine Post-op Diagnosis: same as pre op Procedure: 1. Revision lumbar 5 laminotomies/foraminotomies/facetectomies to decompress central canal and lumbar 5 nerve roots bilaterally 2. Revision lumbar 4 laminotomies, foraminotomies/facetectomies to decompress central canal and lumbar 4 nerve roots bilaterally 3. Lumbar 3 laminectomy with bilateral lumbar 3 laminotomies/foraminotomies/facetectomies to decompress spinal canal and lumbar 3 nerve roots 4. Lumbar 3 to 4 posterior spinal intertransverse fusion with bone graft 5. lumbar 3 to 4 posterior interbody fusion with PEEK cage/bone graft and instrumentation 6. Lumbar 3 to 4 posterior spinal instrumentation with pedicle screws 7. Autograft bone for fusion 8. Allograft bone Bacteria to augment fusion 9. De-mineralized bone matrix to augment fusion 10. Microscope for micro dissection 11. removal deep spina hardware lumbar spine Surgeon: Dr. Arambula Assist: Valarie NOVAK Anesthesia: General Fluids and EBL: See anesthesia note Patient was seen in the Pre Anesthesia Care Unit (PACU) and the operative site was initialed by me. All questions were answered to the patients satisfaction and chart reviewed. The patient was taken to the operative room where pre- operative antibiotics were given 30 minutes prior to incision. General anesthesia was induced and neuro-monitoring leads placed. Gonzalez catheter was placed. The patient [facility] prone [facility]. While positioning, I made sure that the belly was free to allow proper expansion of the lungs. The hips were extended and all bony prominences padded. The shoulders were abducted 80 degree and the elbows flexed 100 degrees with no tension on the brachial plexus. I check the foot arterial pulses and they were palpable. The old surgical scar was marked with a marker prior to prepping and draping. The patient was prepped and draped and time out was taken at this time per usual protocol. At this time, the C-arm fluoroscope was brought in and was used to polina the incision borders proximally and distally. Using a Number 10 Blade, an incision was made extending it proximally and distally per C arm polina from the posterior spinous process of lumbar 3 down to lumbar 5 , down to the lumbo-dorsal fascia. All bleeding was controlled with electrocautery. Self- retaining retractors were placed. Electrocautery was then used to take down the lumbo-dorsal fascia, to free the muscle off the bone bilaterally where the tissue was virgin. A Nakul retractor was placed over the posterior spinous process proximally and a lateral C-arm fluoroscope image was taken to insure we were at the correct level. Next, dissection through the prior surgical site was started at virgin tissue and the deep back muscles were taken down as deep as possible while avoiding getting too close to the dura and avoiding being too shallow to cause nerve injury and bleeding. Next, using bovie electro cautery, The deep fascia laterally to the facet joints was removed to expose the transverse processes of lumbar 3 and 4 and 5 while taking care to avoid injuring the facet capsule at the proximal end of the incision. Next the previous lumbar 4 to sacral 1 contstruct was removed without difficulty. Next, the microscope was bought in for visualization and using a Luxell rongeur, the posterior spinous process of lumbar 3,4,and remnants of lumbar 5 removed and the bone was saved for use as local autograft. I used alternating Kerison 2 mm and 3 mm rongeurs to perform lumbar 3 ,4 and 5 and bilateral laminotomies/foraminotomies and facetectomies to revise the decompression of the central canal and lateral recesses and foramen to decompress the bilateral lumbar 3,4,5 nerve roots and central canal. Next a lumbar 3 laminectomy performed with bilateral lumbar 3 foraminotomies/and facetectomies to decompress the central canal and bilateral lumbar 3 nerve roots. Next using alternating Kerison 2mm and 3 mm rongeurs, the superior articular facets of lumbar 3,5 and 4 were removed bilaterally at the virgin dissection to decompress the lateral recess (facetectomies) and then extended proximally to decompress the foramen bilaterally (foraminotomies). Next , carefully, straight and curved curettes were used to free up the dura from residual lamina left from the prior surgeries and kerison 2mm and 3 mm reongeurs removed the remaining lamina (revision laminotomies). Next, the 3mm and 3mm Kerison rongeurs undercut the sub-articular facets and widened the foramina in the manner described above for the4 and 5 levels. I used a ball tipped nerve probed to insure that the respective nerve roots were able to be mobilized 5mm in each direction were unimpeded in the lateral recess and foramen. Next I carefully inspected the dura to make sure no durotomy was visible and it was not. I covered the exposed dura with gelfoam soaked in thrombin and the microscope was wheeled away from the operative filed. The C-arm fluoroscope was brought in and perfect AP views of the lumbar 2, 3 and 4 pedicle were obtained. I placed bilateral pedicle screws at this levels by: using a Lenke awl to make a pilot submersible ho le, then a ball tip robe to make sure there was no pedicle breach, then a tap to prepare the track and a 6.5 mm diameter 45 mm length pedicle screw from the [employer] was placed bilaterally. This step to place bilateral pedicle screws was repeated up to the lumbar2, 3 and 4 level. Next, the c-arm fluoroscope took an AP and lateral x-ray to ensure proper placement of the p edicle screws. Next, the neuro-stimulation probe was placed over the tip of each screw and each screw stimulated only after a current greater than 10 mA was delivered to the screw. Next , I took a Midas Ck Drill to decorticate the transverse process which were exposed and local bone graft, Bacterin allograft bone substitute and Demineralized bone matrix were placed along the inter transverse process intervals bilaterally (the fusion bed). Next a curved nicolette sized to fit the pedicle screw interval was placed and secured to each pedicle screw using set screws, The set screws were tighten using a torque screwdriver (set to 10 N*M torque) to secure the nicolette to the pedicle screws bilaterally. Final AP and lateral C arm fluoroscopic films were taken at this time. Next a 10 Sami diameter Hemovac drain was laced deep to the lumbo-dorsal fascia. The lumbo-dorsal fascia was closed with interrupted 0-Vicry sutures. The subcutaneous tissue was closed with interrupted 2-0 Vicryl sutures. The skin was closed with 2-0 nylon subcuticular suture. Sterile dressings were place. The pt. was turned supine onto the stretcher, extubated and taken to the recovery room in stable condition. Additional Notes: Plan made post op for TLSO brace and bone stimulator placement when on the floor and stable [employer] Condition Stable Disposition Still a Patient KRIS ARAMBULA MD Aug 12, 2024 16:53
[2024-08-12 16:55] VITALS: PULSE 124; RESP 14; O2SAT 97
[2024-08-12] MEDS: HYDROmorphone HCL 2 MG/ML VL/or syr ONE (17:13)
[2024-08-12] MEDS ORDERED: HYDROmorphone HCL 2 MG/ML VL/or syr IV PRN ×2 (17:15)
[2024-08-12] MEDS: HYDROmorphone HCL 2 MG/ML VL/or syr IV PRN ×2 (17:17→17:27)
--- NOTE | 2024-08-12 18:52 | DVH ---
C-ARM FLUOROSCOPY: PROCEDURE: l3-s1 fusion FLUOROSCOPY TIME: refer to operative report
--- NOTE | 2024-08-12 18:52 | DVH ---
C-ARM FLUOROSCOPY: PROCEDURE: l3-s1 fusion FLUOROSCOPY TIME: refer to operative report
[2024-08-12 20:10] VITALS: PULSE 96; RESP 18; O2SAT 96
[2024-08-12] MEDS: DOCUSATE SOD 100 MG CAP PO SCH (21:21)
[2024-08-12] MEDS: CYCLOBENZAPRINE HCL 10 MG TAB PO SCH (21:21)
[2024-08-12] MEDS: ceFAZolin 1GM/50ML 50 ML IV SCH (21:21)
[2024-08-12] MEDS: MORPHINE SULFATE INJ 2 MG/ml SYRG IV PRN (21:42)
[2024-08-12 22:00] VITALS: BP 114/56; PULSE 96; RESP 17; TEMP 97.5; O2SAT 96
[2024-08-13] VITALS (8 sets, daily range): BP systolic 91–128; BP diastolic 56–73; PULSE 65–110; RESP 17–85; TEMP 97.5–99; O2SAT 91–100
[2024-08-13] MEDS: D5W/SOD CHLO 0.9% 1,000 ML IV SCH (00:50)
[2024-08-13] MEDS: METOCLOPRAMIDE HCL 5MG/ml INJ 2ml VIAL IV ONE (07:00)
--- NOTE | 2024-08-13 17:03 | DVHPN2 ---
Subjective Seen and examined at bedside. POD1 s/p post laminectomy syndrome lumbar spine. Awaiting PT Eval. Changes from previous H/P or p: No Changes Objective Vitals Vital Signs Date Time Temp Pulse Resp B/P (MAP) Pulse Ox O2 Delivery O2 Flow Rate FiO2 08/13/24 16:02 86 16 98/65 08/13/24 13:12 98.3 99 98.3 08/13/24 08:00 Room Air* 0 21 Intake/Output Intake and Output 08/13/24 07:00 Intake Total 600 ml Output Total 50 ml Balance 550 ml Intake Oral 400 ml IV Total 200 ml Output Urine Total 50 ml General Appearance: Alert, Oriented X3, Cooperative, No acute distress HEENT: Atraumatic Neck: Carotid [place] Lungs: Clear to auscultation Cardiovascular: Regular rate, Normal S1, Normal S2 Abdomen: Normal bowel sounds, Soft Rectal: Deferred Back: Other (Lumbar Drain) Musculoskeletal: Normal sensory function, Normal motor function Psych/Mental Status: Mental status NL Medications Current Medications Medications Dose Ordered Sig/Gonsalo Route Start Time Stop Time Status Last Admin Dose Admin Dextrose/Sodium Chloride 1,000 ml @ 100 mls/hr Q10H IV 08/12/24 16:45 08/13/24 12:45 100 MLS/HR Ondansetron HCl 4 mg Q4HP PRN IV 08/12/24 16:45 Acetaminophen 650 mg Q6HP PRN PO 08/12/24 16:45 Acetaminophen/ Hydrocodone Bitart 1 tab Q6HP PRN PO 08/12/24 16:45 Morphine Sulfate 1 mg Q4HP PRN IV 08/12/24 16:45 08/13/24 13:32 1 MG Cyclobenzaprine HCl 10 mg TID PO 08/12/24 22:00 08/13/24 13:31 10 MG Docusate Sodium 100 mg BID PO 08/12/24 22:00 08/13/24 08:58 100 MG Cefazolin Sodium 50 ml @ 100 mls/hr Q8HR IV 08/12/24 22:00 08/14/24 14:29 08/13/24 13:30 100 MLS/HR Nitroglycerin 0.4 mg Q5MINP PRN SL 08/12/24 16:45 Morphine Sulfate 2 mg Q30M PRN IV 11/12/24 16:45 Laboratory Results Laboratory Tests 08/04/24 15:09 Urinalysis Test 08/04/24 15:09 Urine Color Yellow (Yellow) Urine Clarity Clear (Clear) Urine pH 6.5 (5.0-9.0) Urine Specific [place] 1.011 (1.001-1.035) Urine Protein Negative (Negative) Urine Ketones Negative (Negative) Urine Blood Negative /uL (Negative) Urine Nitrite Negative (Negative) Urine Bilirubin Negative (Negative) Urine Urobilinogen Normal mg/dL (Negative) Urine Leukocyte Esterase Negative /uL (Negative) Urine RBC <1 /hpf (0 - 3) Urine WBC 1 /hpf (0 - 3) Urine Squamous Epithelial Cells None seen /hpf (<5) Urine Bacteria Few /hpf (None Seen) H Urine Glucose Normal mg/dL (Normal) Assessment/Plan Assessment/Plan # Hypothyroid - Resume Synthroid - Check TSH # s/p post laminectomy syndrome lumbar spine - As managed by Spine Surgery Plan discussed with: Patient My Orders Orders - JOSÉ LUIS BACON MD Procedure Category Date Status Time Complete Blood Count LAB 08/14/24 Verified 04:00 Basic Metabolic Panel LAB 08/14/24 Verified 04:00 Vitamin D, 25-Hydroxy LAB 08/13/24 Logged 16:53 Thyroid Stimulating LAB 08/14/24 Verified Hormone 04:00 Date of Service: Aug 13, 2024 Billing Provider: JOSÉ LUIS BACON MD Common Visit Codes: [id number] INP/OBS CARE(MOD) JOSÉ LUIS BACON MD Aug 13, 2024 17:03
[2024-08-13] MEDS: HYDROcodone-ACET 10/325MG TAB PO PRN (17:48)
[2024-08-14] VITALS (10 sets, daily range): BP systolic 125–162; BP diastolic 70–85; PULSE 75–94; RESP 16–20; TEMP 97–98.6; O2SAT 90–98
[2024-08-14] MEDS: LEVOTHYROXINE SODIUM 112 MCG TAB PO SCH (06:09)
[2024-08-14 07:05] LABS: Anion Gap 9 (5-15); Carbon Dioxide 23 mmol/L (20-31); Chloride 107 mmol/L (98-107); Potassium 3.8 mmol/L (3.5-5.1); Sodium 139 mmol/L (136-145)
[2024-08-14 07:07] LABS: Calcium 9.1 mg/dL (8.7-10.4)
[2024-08-14 07:11] LABS: BUN/Creatinine Ratio 17.5 (10.0-20.0); Blood Urea Nitrogen 10 mg/dL (9-23); Glucose 116 mg/dL (74-106)
[2024-08-14 07:23] LABS: Basophils # (auto) 0 10 ^3/uL (0-0.2); Basophils % (auto) 0.4 % (0.0-2.0); Eosinophils # (auto) 0.1 10 ^3/uL (0-0.8); Hematocrit 23.6 % (41.0-53.0); Lymphocytes # (auto) 1.6 10 ^3/uL (0.4-5.4); Lymphocytes % (auto) 14.3 % (10.0-50.0); Mean Corpuscular Hemoglobin 32.8 pg (28.0-32.0); Mean Corpuscular Hgb Conc. 33.7 g/dL (32.0-36.0); Mean Corpuscular Volume 97.2 fL (80.0-100.0); Monocytes # (auto) 0.9 10 ^3/uL (0-1.3); Monocytes % (auto) 8.4 % (0.0-12.0); Neutrophils # (auto) 8.5 10 ^3/uL (1.6-8.6); Neutrophils % (auto) 75.9 % (37.0-80.0); Platelet Count (auto) 284 10^3/uL (140-450); Red Blood Cells 2.43 10^6/uL (4.5-5.90); Red Cell Distribution Width 12.6 % (11.8-14.3); White Blood Cell 11.1 10^3/uL (4.4-10.8)
[2024-08-14] MEDS: ACETAMINOPHEN 325 MG TAB PO PRN (10:15)
--- NOTE | 2024-08-14 12:52 | DVHPN2 ---
Subjective Seen and examined at bedside. POD2 having urinary retention, rivero placed. Start Flomax. Monitor H&H Changes from previous H/P or p: No Changes Objective Vitals Vital Signs Date Time Temp Pulse Resp B/P (MAP) Pulse Ox O2 Delivery O2 Flow Rate FiO2 08/14/24 11:15 98.5 08/14/24 10:14 109 18 122/64 08/14/24 09:11 95 08/13/24 20:00 Room Air* 0 21 Intake/Output Intake and Output 08/14/24 07:00 Intake Total 1740 ml Output Total 550 ml Balance 1190 ml Intake Oral 640 ml IV Total 1100 ml Output Urine Total 550 ml General Appearance: Alert, Oriented X3, Cooperative, No acute distress HEENT: Atraumatic Neck: Carotid [place] Lungs: Clear to auscultation Cardiovascular: Regular rate, Normal S1, Normal S2 Abdomen: Normal bowel sounds, Soft Rectal: Deferred Back: Other (Lumbar Drain) Musculoskeletal: Normal sensory function, Normal motor function Psych/Mental Status: Mental status NL Medications Current Medications Medications Dose Ordered Sig/Gonsalo Route Start Time Stop Time Status Last Admin Dose Admin Ondansetron HCl 4 mg Q4HP PRN IV 08/12/24 16:45 Acetaminophen 650 mg Q6HP PRN PO 08/12/24 16:45 08/14/24 10:15 650 MG Acetaminophen/ Hydrocodone Bitart 1 tab Q6HP PRN PO 08/12/24 16:45 08/14/24 12:09 1 TAB Morphine Sulfate 1 mg Q4HP PRN IV 08/12/24 16:45 08/14/24 10:14 1 MG Cyclobenzaprine HCl 10 mg TID PO 08/12/24 22:00 08/14/24 06:09 10 MG Docusate Sodium 100 mg BID PO 08/12/24 22:00 08/14/24 10:13 100 MG Cefazolin Sodium 50 ml @ 100 mls/hr Q8HR IV 08/12/24 22:00 08/14/24 14:29 08/14/24 06:09 100 MLS/HR Nitroglycerin 0.4 mg Q5MINP PRN SL 08/12/24 16:45 Morphine Sulfate 2 mg Q30M PRN IV 08/12/24 16:45 Levothyroxine Sodium 112 mcg QAM@0600 PO 08/14/24 06:00 08/14/24 06:09 112 MCG Laboratory Results Laboratory Tests 08/14/24 06:30 Chemistry Test 08/14/24 06:30 Calcium Level 9.1 mg/dL (8.7-10.4) HgA1c, TSH Test 08/14/24 06:30 Thyroid Stimulating Hormone (TSH) 3.61 uIU/mL (0.55-4.78) Urinalysis Test 08/04/24 15:09 Urine Color Yellow (Yellow) Urine Clarity Clear (Clear) Urine pH 6.5 (5.0-9.0) Urine Specific [place] 1.011 (1.001-1.035) Urine Protein Negative (Negative) Urine Ketones Negative (Negative) Urine Blood Negative /uL (Negative) Urine Nitrite Negative (Negative) Urine Bilirubin Negative (Negative) Urine Urobilinogen Normal mg/dL (Negative) Urine Leukocyte Esterase Negative /uL (Negative) Urine RBC <1 /hpf (0 - 3) Urine WBC 1 /hpf (0 - 3) Urine Squamous Epithelial Cells None seen /hpf (<5) Urine Bacteria Few /hpf (None Seen) H Urine Glucose Normal mg/dL (Normal) Assessment/Plan Assessment/Plan # Hypothyroid - Resume Synthroid # Urinary Retention - Rivero # Anemia, likely dilutional - Repeat in AM # s/p post laminectomy syndrome lumbar spine - As managed by Spine Surgery Plan discussed with: Patient My Orders Orders - JOSÉ LUIS BACON MD Procedure Category Date Status Time Levothyroxine Tablet PHA 08/14/24 In Process (Synthroid Tablet) 06:00 Insert Rivero Catheter SHAHBAZ 08/14/24 In Process 08:22 Hemoglobin & LAB 08/15/24 Verified Hematocrit 04:00 Date of Service: Aug 14, 2024 Billing Provider: JOSÉ LUIS BACON MD Common Visit Codes: [id number] INP/OBS CARE(HIGH) JOSÉ LUIS BACON MD Aug 14, 2024 12:52
[2024-08-14] MEDS: TAMSULOSIN HYDROCHLORIDE 0.4 MG CAP PO SCH (18:54)
[2024-08-15] VITALS (7 sets, daily range): BP systolic 118–150; BP diastolic 56–94; PULSE 82–103; RESP 15–22; TEMP 98.1–98.9; O2SAT 94–99
[2024-08-15 05:31] LABS: Hematocrit 22.2 % (41.0-53.0); Hemoglobin 7.8 g/dL (13.5-17.5)
[2024-08-15 11:34] LABS: Hemoglobin 7.5 g/dL (13.5-17.5)
[2024-08-15 11:38] LABS: Hematocrit 21.6 % (41.0-53.0)
[2024-08-15 11:50] LABS: % Iron Saturation 5.5 % (20-55)
[2024-08-15 12:20] LABS: Folate (Folic Acid) 34.46 ng/mL (>5.38)
--- NOTE | 2024-08-15 14:35 | DVHPN2 ---
Subjective Seen and examined at bedside. POD3 Gonzalez in place. H&H dropping. Start Iron IV Changes from previous H/P or p: No Changes Objective Vitals Vital Signs Date Time Temp Pulse Resp B/P (MAP) Pulse Ox O2 Delivery O2 Flow Rate FiO2 08/15/24 12:46 100 15 140/85 08/15/24 09:00 98.2 96 98.2 08/14/24 20:00 Room Air* 0 21 Intake/Output Intake and Output 08/15/24 07:00 Intake Total 5300 ml Output Total 3800 ml Balance 1500 ml Intake Oral 5300 ml Output Urine Total 3800 ml General Appearance: Alert, Oriented X3, Cooperative, No acute distress HEENT: Atraumatic Neck: Carotid [place] Lungs: Clear to auscultation Cardiovascular: Regular rate, Normal S1, Normal S2 Abdomen: Normal bowel sounds, Soft Rectal: Deferred Back: Other (Lumbar Drain) Musculoskeletal: Normal sensory function, Normal motor function Psych/Mental Status: Mental status NL Medications Current Medications Medications Dose Ordered Sig/Gonsalo Route Start Time Stop Time Status Last Admin Dose Admin Ondansetron HCl 4 mg Q4HP PRN IV 08/12/24 16:45 Acetaminophen 650 mg Q6HP PRN PO 08/12/24 16:45 08/14/24 10:15 650 MG Acetaminophen/ Hydrocodone Bitart 1 tab Q6HP PRN PO 08/12/24 16:45 08/15/24 08:53 1 TAB Morphine Sulfate 1 mg Q4HP PRN IV 08/12/24 16:45 08/15/24 12:46 1 MG Cyclobenzaprine HCl 10 mg TID PO 08/12/24 22:00 08/15/24 14:07 10 MG Docusate Sodium 100 mg BID PO 08/12/24 22:00 08/15/24 08:52 100 MG Nitroglycerin 0.4 mg Q5MINP PRN SL 08/12/24 16:45 Morphine Sulfate 2 mg Q30M PRN IV 08/12/24 16:45 Levothyroxine Sodium 112 mcg QAM@0600 PO 08/14/24 06:00 08/15/24 05:18 112 MCG Tamsulosin HCl 0.4 mg QPM PO 08/14/24 18:00 08/14/24 18:54 0.4 MG Iron Sucrose 110 ml @ 110 mls/hr DAILY@1200 IV 08/15/24 14:30 08/19/24 12:59 UNV Laboratory Results Laboratory Tests 08/14/24 06:30 08/15/24 11:00 Urinalysis Test 08/04/24 15:09 Urine Color Yellow (Yellow) Urine Clarity Clear (Clear) Urine pH 6.5 (5.0-9.0) Urine Specific [place] 1.011 (1.001-1.035) Urine Protein Negative (Negative) Urine Ketones Negative (Negative) Urine Blood Negative /uL (Negative) Urine Nitrite Negative (Negative) Urine Bilirubin Negative (Negative) Urine Urobilinogen Normal mg/dL (Negative) Urine Leukocyte Esterase Negative /uL (Negative) Urine RBC <1 /hpf (0 - 3) Urine WBC 1 /hpf (0 - 3) Urine Squamous Epithelial Cells None seen /hpf (<5) Urine Bacteria Few /hpf (None Seen) H Urine Glucose Normal mg/dL (Normal) Assessment/Plan Assessment/Plan # Anemia - Iron IV, transfuse if drop <7 # Hypothyroid - Resume Synthroid # Urinary Retention - Gonzalez # s/p post laminectomy syndrome lumbar spine - As managed by Spine Surgery Plan discussed with: Patient My Orders Orders - JOSÉ LUIS BACON MD Procedure Category Date Status Time Iron Sucrose Complex PHA 08/15/24 Logged (Venofer) 14:30 Hemoglobin & LAB 08/16/24 Verified Hematocrit 04:00 Date of Service: Aug 15, 2024 Billing Provider: JOSÉ LUIS BACON MD Common Visit Codes: [id number] INP/OBS CARE(HIGH) JOSÉ LUIS BACON MD Aug 15, 2024 14:35
[2024-08-15] MEDS: IRON SUCROSE COMPLEX 110 ML IV SCH (15:36)
[2024-08-15] MEDS: CARISOPRODOL 350 MG TAB PO SCH (21:04)
[2024-08-16 01:00] VITALS: BP 146/83; PULSE 96; RESP 19; TEMP 98.3; O2SAT 99
[2024-08-16 05:00] VITALS: BP 138/83; PULSE 91; RESP 19; TEMP 98.3; O2SAT 98
[2024-08-16 06:20] LABS: Hemoglobin 7.9 g/dL (13.5-17.5)
[2024-08-16 06:23] LABS: Hematocrit 21.8 % (41.0-53.0)
[2024-08-16 08:00] VITALS: PULSE 106; RESP 18; O2SAT 95
[2024-08-16 09:00] VITALS: BP 124/74; PULSE 110; RESP 18; TEMP 97.9; O2SAT 95
[2024-08-16 13:00] VITALS: BP 139/101; PULSE 101; RESP 18; TEMP 97.6; O2SAT 96
[2024-08-16 14:15] LABS: Hematocrit 21.4 % (41.0-53.0); Hemoglobin 7.5 g/dL (13.5-17.5)
[2024-08-16] MEDS ORDERED: FERR1TAB36 PO (14:26)
[2024-08-16] MEDS ORDERED: FINA5TAB4 PO (14:26)
[2024-08-16] MEDS ORDERED: TAMS-35 PO (14:26)
--- NOTE | 2024-08-16 14:30 | DVHDS2 ---
Discharge Summary Date of Admission Aug 12, 2024 at 16:36 Date of Discharge: Aug 16, 2024 Admitting Diagnosis Post laminectomy syndrome lumbar spine Labs/Diagnostic Data: Laboratory Results Test 08/16/24 13:30 08/15/24 11:00 08/14/24 06:30 08/13/24 17:57 Hemoglobin 7.5 g/dL (13.5-17.5) Hematocrit 21.4 % (41.0-53.0) Reticulocyte Count (auto) 2.04 % (0.5-1.5) Iron Level 15 ug/dL (65-175) Total Iron Binding Capacity 273 ug/dL (250-425) Percent Iron Saturation 5.5 % (20-55) Lactate Dehydrogenase 143 U/L (120-246) Vitamin B12 Level 933 pg/mL (211-911) Folic Acid 34.46 ng/mL (>5.38) White Blood Count 11.1 10^3/uL (4.4-10.8) Red Blood Count 2.43 10^6/uL (4.5-5.90) Mean Corpuscular Volume 97.2 fL (80.0-100.0) Mean Corpuscular Hemoglobin 32.8 pg (28.0-32.0) Mean Corpuscular Hemoglobin Concent 33.7 g/dL (32.0-36.0) Red Cell Distribution Width 12.6 % (11.8-14.3) Platelet Count 284 10^3/uL (140-450) Mean Platelet Volume 7.3 fL (6.9-10.8) Neutrophils (%) (Auto) 75.9 % (37.0-80.0) Lymphocytes (%) (Auto) 14.3 % (10.0-50.0) Monocytes (%) (Auto) 8.4 % (0.0-12.0) Eosinophils (%) (Auto) 1.0 % (0.0-7.0) Basophils (%) (Auto) 0.4 % (0.0-2.0) Neutrophils # (Auto) 8.5 10 ^3/uL (1.6-8.6) Lymphocytes # (Auto) 1.6 10 ^3/uL (0.4-5.4) Monocytes # (Auto) 0.9 10 ^3/uL (0-1.3) Eosinophils # (Auto) 0.1 10 ^3/uL (0-0.8) Basophils # (Auto) 0 10 ^3/uL (0-0.2) Nucleated Red Blood Cells 0.0 % Sodium Level 139 mmol/L (136-145) Potassium Level 3.8 mmol/L (3.5-5.1) Chloride Level 107 mmol/L (98-107) Carbon Dioxide Level 23 mmol/L (20-31) Anion Gap 9 (5-15) Blood Urea Nitrogen 10 mg/dL (9-23) Creatinine 0.57 mg/dL (0.700-1.30) Glomerular Filtration Rate Calc 108 mL/min (>90) BUN/Creatinine Ratio 17.5 (10.0-20.0) Serum Glucose 116 mg/dL (74-106) Calcium Level 9.1 mg/dL (8.7-10.4) Thyroid Stimulating Hormone (TSH) 3.61 uIU/mL (0.55-4.78) Vitamin D 25-Hydroxy 50.8 ng/mL (30.0-100) Test 08/04/24 15:09 Prothrombin Time 9.8 sec (9.3-11.8) Prothrombin Time INR 0.92 (0.9-1.15) Activated Partial Thromboplast Time 28.5 SEC (24.5-34.5) Urine Color Yellow (Yellow) Urine Clarity Clear (Clear) Urine pH 6.5 (5.0-9.0) Urine Specific [place] 1.011 (1.001-1.035) Urine Protein Negative (Negative) Urine Ketones Negative (Negative) Urine Blood Negative /uL (Negative) Urine Nitrite Negative (Negative) Urine Bilirubin Negative (Negative) Urine Urobilinogen Normal mg/dL (Negative) Urine Leukocyte Esterase Negative /uL (Negative) Urine RBC <1 /hpf (0 - 3) Urine WBC 1 /hpf (0 - 3) Urine Squamous Epithelial Cells None seen /hpf (<5) Urine Bacteria Few /hpf (None Seen) Urine Glucose Normal mg/dL (Normal) Total Bilirubin 0.2 mg/dL (0.2-1.0) Aspartate Amino Transferase (AST) 14 U/L (13-40) Alanine Aminotransferase (ALT) 14 U/L (7-40) Alkaline Phosphatase 74 U/L (46-116) Total Protein 7.0 g/dL (5.7-8.2) Albumin 4.6 g/dL (3.2-4.8) Other Laboratory Tests 08/16/24 13:30 08/14/24 06:30 Brief Hx & Hospital Course: Patient with a history of prior lumbar spine surgery being admitted for revision lumbar spine surgery, see operative report below by Dr. Arambula. Patient tolerated the procedure well. However, patient has expected anemia post op. Patient got Iron IV, feeling better, no shortness of breath or fatigue. Patient will see Dr. Arambula on Sunday at [address] Childress on Sunday and needs CBC to be done. Operations or Procedures Report Details Date: 08/12/24 Preop Diagnosis: post laminectomy syndrome lumbar spine Postop Diagnosis: same as pre op Surgeon: Kris Arambula MD Embedded Systems Developer: Valarie Green NP Anesthesiologist: stan Anesthesia: General Consent: The patient was informed of the risks and benefits of the procedure. These include but are not limited to complications of anesthesia, postoperative infection, incomplete relief of symptoms, recurrence of symptoms, damage to blood vessels, nerves and tendons, deep venous thrombosis, pulmonary embolism and possible need for repeat surgery in the future. Name of Procedure Performed see procedure note Procedure Details Procedure Details: Pre-op Diagnosis: 1. Post laminectomy syndrome lumbar spine with severe central canal stenosis at the L3/4 level and spondylolisthesis/degenerative scoliosis at the L3/4 level 2. Lumbar spinal stenosis with incapacitating radiculopathy 3. retained hardware lumbar spine Post-op Diagnosis: same as pre op Procedure: 1. Revision lumbar 5 laminotomies/foraminotomies/facetectomies to decompress central canal and lumbar 5 nerve roots bilaterally 2. Revision lumbar 4 laminotomies, foraminotomies/facetectomies to decompress central canal and lumbar 4 nerve roots bilaterally 3. Lumbar 3 laminectomy with bilateral lumbar 3 laminotomies/foraminotomies/facetectomies to decompress spinal canal and lumbar 3 nerve roots 4. Lumbar 3 to 4 posterior spinal intertransverse fusion with bone graft 5. lumbar 3 to 4 posterior interbody fusion with PEEK cage/bone graft and instrumentation 6. Lumbar 3 to 4 posterior spinal instrumentation with pedicle screws 7. Autograft bone for fusion 8. Allograft bone Bacteria to augment fusion 9. De-mineralized bone matrix to augment fusion 10. Microscope for micro dissection 11. removal deep spina hardware lumbar spine Surgeon: Dr. Arambula Assist: Valarie NOVAK Anesthesia: General Fluids and EBL: See anesthesia note Patient was seen in the Pre Anesthesia Care Unit (PACU) and the operative site was initialed by me. All questions were answered to the patients satisfaction and chart reviewed. The patient was taken to the operative room where pre- operative antibiotics were given 30 minutes prior to incision. General anesthesia was induced and neuro-monitoring leads placed. Gonzalez catheter was placed. The [facility] While positioning, I made sure that the belly was free to allow proper expansion of the lungs. The hips were extended and all bony prominences padded. The shoulders were abducted 80 degree and the elbows flexed 100 degrees with no tension on the brachial plexus. I check the foot arterial pulses and they were palpable. The old surgical scar was marked with a marker prior to prepping and draping. The patient was prepped and draped and time out was taken at this time per usual protocol. At this time, the C-arm fluoroscope was brought in and was used to polina the incision borders proximally and distally. Using a Number 10 Blade, an incision was made extending it proximally and distally per C arm polina from the posterior spinous process of lumbar 3 down to lumbar 5 , down to the lumbo-dorsal fascia. All bleeding was controlled with electrocautery. Self- retaining retractors were placed. Electrocautery was then used to take down the lumbo-dorsal fascia, to free the muscle off the bone bilaterally where the tissue was virgin. A Nakul retractor was placed over the posterior spinous process proximally and a lateral C-arm fluoroscope image was taken to insure we were at the correct level. Next, dissection through the prior surgical site was started at virgin tissue and the deep back muscles were taken down as deep as possible while avoiding getting too close to the dura and avoiding being too shallow to cause nerve injury and bleeding. Next, using bovie electro cautery, The deep fascia laterally to the facet joints was removed to expose the transverse processes of lumbar 3 and 4 and 5 while taking care to avoid injuring the facet capsule at the proximal end of the incision. Next the previous lumbar 4 to sacral 1 contstruct was removed without difficulty. Next, the microscope was bought in for visualization and using a Luxell rongeur, the posterior spinous process of lumbar 3,4,and remnants of lumbar 5 removed and the bone was saved for use as local autograft. I used alternating Kerison 2 mm and 3 mm rongeurs to perform lumbar 3 ,4 and 5 and bilateral laminotomies/foraminotomies and facetectomies to revise the decompression of the central canal and lateral recesses and foramen to decompress the bilateral lumbar 3,4,5 nerve roots and central canal. Next a lumbar 3 laminectomy performed with bilateral lumbar 3 foraminotomies/and facetectomies to decompress the central canal and bilateral lumbar 3 nerve roots. Next using alternating Kerison 2mm and 3 mm rongeurs, the superior articular facets of lumbar 3,5 and 4 were removed bilaterally at the virgin dissection to decompress the lateral recess (facetectomies) and then extended proximally to decompress the foramen bilaterally (foraminotomies). Next , carefully, straight and curved curettes were used to free up the dura from residual lamina left from the prior surgeries and kerison 2mm and 3 mm reongeurs removed the remaining lamina (revision laminotomies). Next, the 3mm and 3mm Kerison rongeurs undercut the sub-articular facets and widened the foramina in the manner described above for the4 and 5 levels. I used a ball tipped nerve probed to insure that the respective nerve roots were able to be mobilized 5mm in each direction were unimpeded in the lateral recess and foramen. Next I carefully inspected the dura to make sure no durotomy was visible and it was not. I covered the exposed dura with gelfoam soaked in thrombin and the microscope was wheeled away from the operative filed. The C-arm fluoroscope was brought in and perfect AP views of the lumbar 2, 3 and 4 pedicle were obtained. I placed bilateral pedicle screws at this levels by: using a Lenke awl to make a commuter pilot hole, then a ball tip robe to make sure there was no pedicle breach, then a tap to prepare the track and a 6.5 mm diameter 45 mm length pedicle screw from the [employer] was placed bilaterally. This step to place bilateral pedicle screws was repeated up to the lumbar2, 3 and 4 level. Next, the c-arm fluoroscope took an AP and lateral x-ray to ensure proper placement of the pedicle screws. Next, the neuro-stimulation probe was placed over the tip of each screw and each screw stimulated only after a current greater than 10 mA was delivered to the screw. Next , I took a Midas Ck Drill to decorticate the transverse process which were exposed and local bone graft, Bacterin allograft bone substitute and Demineralized bone matrix were placed along the inter transverse process intervals bilaterally (the fusion bed). Next a curved nicolette sized to fit the pedicle screw interval was placed and secured to each pedicle screw using set screws, The set screws were tighten using a torque screwdriver (set to 10 N*M torque) to secure the nicolette to the pedicle screws bilaterally. Final AP and lateral C arm fluoroscopic films were taken at this time. Next a 10 [place] diameter Hemovac drain was laced deep to the lumbo-dorsal fascia. The lumbo-dorsal fascia was closed with interrupted 0-Vicry sutures. The subcutaneous tissue was closed with interrupted 2-0 Vicryl sutures. The skin was closed with 2-0 nylon subcuticular suture. Sterile dressings were place. The pt. was turned supine onto the stretcher, extubated and taken to the recovery room in stable condition. Additional Notes: Plan made post op for TLSO brace and bone stimulator placement when on the floor and stable [employer] Condition at Discharge: Stable Final Diagnosis/Problems List # Anemia - Iron PO - Check CBC on Sunday # Hypothyroid - Resume Synthroid # Urinary Retention - Flomax # s/p post laminectomy syndrome lumbar spine - As managed by Spine Surgery Discharge Disposition: Home Discharge Instruct/Medications Diet: Regular Activity: No Restrictions, As Tolerated Follow Up/Referral: Dr. Arambula on Sunday Dr. Childress on Sunday Medications: Flomax Needs CBC on Sunday Discharge Statement: "Patient was advised to return to the ER or call 911 if any headaches, dizziness, shortness of breath, chest pain, abdominal pain, bleeding, fevers, or worsening of medical condition. Patient was counseled about treatment plan, medications, possible side effects, patientverbalized understanding. All questions were answered to the best of my ability. This discharge took greater then 30 minutes in planning, reviewing documentation, counseling the patient, and discussing with other team members." ASSESSMENT ASSESSMENT Assessment same as pre op Date of Service: Aug 16, 2024 Billing Provider: JOSÉ LUIS BACON MD Common Visit Codes: 22611-IAV/OBS DISCH DAY >30min JOSÉ LUIS BACON MD Aug 16, 2024 14:30
[2024-08-16 16:01] VITALS: BP 139/101; PULSE 101; RESP 18; TEMP 97.6; O2SAT 96
== END 2024-08-16 17:59 | disposition home health service (06) | DRG 458 ==
LOC: SUR 08:54 → TELE 16:36 → TELE-CENTR 19:02 → CENTRAL 08-15 12:56
PROVIDERS: ADMIT Orthopaedic Surgery; ATTEND Internal Medicine
PROC: 01NB0ZZ Release Lumbar Nerve, Open Approach (ICD-10-PCS; 2024-08-12)
PROC: 00NY0ZZ Release Lumbar Spinal Cord, Open Approach (ICD-10-PCS; 2024-08-12)
PROC: 0SP304Z Removal of Internal Fixation Device from Lumbosacral Joint, Open Approach (ICD-10-PCS; 2024-08-12)
PROC: 4A11X4G Monitoring of Peripheral Nervous Electrical Activity, Intraoperative, External Approach (ICD-10-PCS; 2024-08-12)
PROC: 0SG1071 Fusion of 2 or more Lumbar Vertebral Joints with Autologous Tissue Substitute, Posterior Approach, Posterior Column, Open Approach (ICD-10-PCS; principal; 2024-08-12 12:47)
DX: M48.061 Spinal stenosis, lumbar region without neurogenic claudication (principal); M41.56 Other secondary scoliosis, lumbar region; M96.1 Postlaminectomy syndrome, not elsewhere classified; M43.16 Spondylolisthesis, lumbar region; D64.9 Anemia, unspecified; E03.9 Hypothyroidism, unspecified; R33.9 Retention of urine, unspecified; Z79.899 Other long term (current) drug therapy; M54.16 Radiculopathy, lumbar region
CPT/HCPCS: 36415; 72100; 76000; 80048; 80053; 81001; 82306; 82607; 82746; 83540; 83550; 83615; 84443; 85014; 85018; 85025; 85045; 85610; 85730; 86850; 86900; 86901; 97110; 97116; 97163; 97530; G0378; J1100; J1756; J1956; J2003; J2250; J2405; J2704

== ENCOUNTER → 2024-09-16 | Outpatient (CLI) | payer OTHER ==
[~2024-09-16] MED LIST changes: +FERR1TAB36 PO; +FINA5TAB4 PO; +TAMS-35 PO
[2024-09-16 13:44] LABS: Basophils # (auto) 0.1 10 ^3/uL (0-0.2); Basophils % (auto) 1.1 % (0.0-2.0); Eosinophils # (auto) 0.3 10 ^3/uL (0-0.8); Eosinophils % (auto) 4.2 % (0.0-7.0); Hematocrit 34.7 % (41.0-53.0); Hemoglobin 11.4 g/dL (13.5-17.5); Lymphocytes # (auto) 2.1 10 ^3/uL (0.4-5.4); Lymphocytes % (auto) 26.5 % (10.0-50.0); Mean Corpuscular Hemoglobin 31.6 pg (28.0-32.0); Mean Corpuscular Hgb Conc. 32.9 g/dL (32.0-36.0); Monocytes # (auto) 0.6 10 ^3/uL (0-1.3); Monocytes % (auto) 7.9 % (0.0-12.0); Neutrophils # (auto) 4.7 10 ^3/uL (1.6-8.6); Neutrophils % (auto) 60.3 % (37.0-80.0); Platelet Count (auto) 396 10^3/uL (140-450); Red Blood Cells 3.61 10^6/uL (4.5-5.90); Red Cell Distribution Width 13.6 % (11.8-14.3); White Blood Cell 7.8 10^3/uL (4.4-10.8)
[2024-09-16 13:57] LABS: Chloride 102 mmol/L (98-107); Potassium 4.7 mmol/L (3.5-5.1); Sodium 137 mmol/L (136-145)
[2024-09-16 13:58] LABS: Anion Gap 5 (5-15); Calcium 9.9 mg/dL (8.7-10.4); Carbon Dioxide 30 mmol/L (20-31)
[2024-09-16 14:03] LABS: BUN/Creatinine Ratio 20.3 (10.0-20.0); Blood Urea Nitrogen 14 mg/dL (9-23); Glucose 95 mg/dL (74-106)
== END | disposition home or self-care (01) ==
LOC: LAB 13:28
PROVIDERS: ATTEND Internal Medicine
DX: D64.9 Anemia, unspecified (principal); R22.43 Localized swelling, mass and lump, lower limb, bilateral
CPT/HCPCS: 36415; 80048; 83880; 85025

== ENCOUNTER → 2024-12-18 | Outpatient (CLI) | payer OTHER ==
[2024-12-18 10:34] LABS: Urine Bacteria None Seen /hpf (None Seen)
[2024-12-18 10:43] LABS: Basophils # (auto) 0.1 10 ^3/uL (0-0.2); Basophils % (auto) 1.2 % (0.0-2.0); Eosinophils # (auto) 0.3 10 ^3/uL (0-0.8); Eosinophils % (auto) 3.7 % (0.0-7.0); Hematocrit 38.6 % (41.0-53.0); Lymphocytes # (auto) 2.1 10 ^3/uL (0.4-5.4); Lymphocytes % (auto) 26.6 % (10.0-50.0); Mean Corpuscular Hemoglobin 30.3 pg (28.0-32.0); Mean Corpuscular Hgb Conc. 33.7 g/dL (32.0-36.0); Monocytes # (auto) 0.7 10 ^3/uL (0-1.3); Monocytes % (auto) 9.2 % (0.0-12.0); Neutrophils # (auto) 4.7 10 ^3/uL (1.6-8.6); Neutrophils % (auto) 59.3 % (37.0-80.0); Platelet Count (auto) 336 10^3/uL (140-450); Red Blood Cells 4.29 10^6/uL (4.5-5.90); Red Cell Distribution Width 14.9 % (11.8-14.3); White Blood Cell 7.9 10^3/uL (4.4-10.8)
[2024-12-18 11:06] LABS: Alanine Aminotransferase 21 U/L (7-40); Albumin 4.6 g/dL (3.2-4.8); Alkaline Phosphatase 87 U/L (46-116); Anion Gap 3 (5-15); Aspartate Aminotransferase 22 U/L (13-40); BUN/Creatinine Ratio 18.4 (10.0-20.0); Blood Urea Nitrogen 14 mg/dL (9-23); Calcium 9.6 mg/dL (8.7-10.4); Carbon Dioxide 31 mmol/L (20-31); Chloride 102 mmol/L (98-107); Cholesterol 173 mg/dL (< 200); Glucose 98 mg/dL (74-106); HDL Cholesterol 57 mg/dL (40-59); Total Protein 6.9 g/dL (5.7-8.2); Triglycerides 82 mg/dL (< 150)
[2024-12-18 11:09] LABS: Bilirubin, Total 0.3 mg/dL (0.2-1.0); LDL Cholesterol 108 mg/dL (< 100); Sodium 136 mmol/L (136-145)
[2024-12-18 11:17] LABS: Urine Blood Negative /uL (Negative); Urine Clarity Clear (Clear); Urine Color Yellow (Yellow); Urine Protein, UAD Negative (Negative); Urine Specific Gravity 1.013 (1.001-1.035); Urine Squamous Epithelial Cell None Seen /hpf (<5); Urine Urobilinogen Normal (Negative); Urine WBC < 1 /HPF (0-3); Urine pH 6.5 (5.0-9.0)
[2024-12-18 11:18] LABS: Erythrocyte Sedimentation Rate 14 mm/hr (0-20)
== END | disposition home or self-care (01) ==
LOC: LAB 10:17
PROVIDERS: ATTEND Internal Medicine
DX: E03.9 Hypothyroidism, unspecified (principal)
CPT/HCPCS: 36415; 80053; 80061; 81001; 84439; 84443; 85025; 85652

== ENCOUNTER → 2025-05-22 | Outpatient (CLI) | payer OTHER ==
[2025-05-22 15:47] LABS: Hematocrit 40.1 % (41.0-53.0); Hemoglobin 13.6 g/dL (13.5-17.5); Mean Corpuscular Hemoglobin 32.0 pg (28.0-32.0); Mean Corpuscular Volume 94.9 fL (80.0-100.0); Nucleated Red Blood Cells % 0.0 %
[2025-05-22 16:23] LABS: Iron 64.0 ug/dL (65-175)
[2025-05-22 16:26] LABS: Alanine Aminotransferase 17 U/L (7-40); Prostate Specific Antigen 2.34 ng/mL (0.0-4.0); Total Iron Binding Capacity 292.0 ug/dL (250-425)
[2025-05-22 16:29] LABS: Free T4 (Free Thyroxine) 1.28 ng/dL (0.89-1.76)
== END | disposition home or self-care (01) ==
LOC: LAB 15:32
PROVIDERS: ATTEND Internal Medicine
DX: N40.0 Benign prostatic hyperplasia without lower urinary tract symptoms (principal); E03.9 Hypothyroidism, unspecified; E78.00 Pure hypercholesterolemia, unspecified
CPT/HCPCS: 36415; 83540; 83550; 84153; 84439; 84443; 84450; 84460; 85025